=== PATIENT | female | born 1940 | race Caucasian/White ===

== ENCOUNTER 2018-04-17 09:41 | Inpatient (IN) ==
--- NOTE | 2018-04-17 09:59 | Emergency Department Note ---
Disposition Clinical Impression: Dehydration, Renal failure, Weakness Disposition: Admitted As Inpatient Condition: Fair General Adult HPI - General Stated complaint: weakness Time Seen by Provider: 04/17/18 09:43 Source: EMS Limitations: no limitations Nursing Notes Reviewed: Yes Vital Signs Reviewed: Yes - History of Present Illness Pain Scale: 0 - Related Data Home Medications Medication Instructions Recorded Confirmed Aspirin [Adult Low Dose Aspirin EC] 81 mg PO DAILY 08/20/15 10/10/15 Ibandronate Sodium [Boniva] 150 mg PO QMONTH 08/20/15 10/10/15 Temazepam [Restoril] 15 mg PO HS 08/20/15 10/10/15 Lorazepam 0.5 mg PO DAILY 10/10/15 10/10/15 Losartan/HCTZ 50 mg PO DAILY 10/10/15 10/10/15 Previous Rx's Medication Instructions Recorded Clopidogrel [Plavix] 75 mg PO DAILY #30 tablet 08/22/15 Metoprolol XL (24 HR) Succ [Toprol 25 mg PO DAILY #30 tab.er.24h 08/22/15 XL] Nitroglycerin 0.4 mg SL Q5MIN PRN #25 tab.subl 08/22/15 Cefdinir [Omnicef] 300 mg PO BID #14 capsule 04/11/17 predniSONE [PredniSONE] 20 mg PO DAILY 12 Days #24 tablet 04/07/18 Lidocaine Patch [Lidoderm 5% patch] 1 each TP DAILY PRN #7 adh..patch 04/08/18 Allergies Allergy/AdvReac Type Severity Reaction Status Date / Time Erythromycin Base Allergy Rash Verified 04/08/18 12:26 Penicillins Allergy Hives Verified 04/08/18 12:26 Past Medical History - Past Medical History Medical history: Reports: non-contributory, cancer, COPD, myocardial infarction Surgical history: Reports: angioplasty/stent (R common iliac stent), breast surgery (bilateral mastectomy), hysterectomy, orthopedic, other (R foot) Psychiatric history: Reports: no psych history - Social History Smoking Status: Current every day smoker Smokeless Tobacco Status: No Alcohol use: Reports: none Drug use: Reports: none Physical Exam - General Limitations: no limitations General appearance: alert, in no apparent distress Course Vital Signs Temperature 97.9 F 04/17/18 09:49 Pulse Rate 93 04/17/18 09:49 Respiratory Rate 22 04/17/18 09:49 Blood Pressure 101/57 04/17/18 09:49 O2 Sat by Pulse Oximetry 95 04/17/18 09:49 Temperature 97.9 F 04/17/18 09:49 Pulse Rate 90 04/17/18 14:33 Respiratory Rate 20 04/17/18 14:33 Blood Pressure 90/63 04/17/18 14:33 O2 Sat by Pulse Oximetry 95 04/17/18 14:33 Oxygen Delivery Oxygen Delivery Room Air Medical Decision Making - MDM Narrative Medical decision making narrative: Head CT 04/17/18 10:05 IMPRESSION: No acute intracranial abnormality. D/ / Tao Trevizo MD / Tao Trevizo MD Interpreting Provider: Tao Trevizo MD 1230 hrs.: Patient's a very difficult IV stick so they were finally able to get blood off her after several attempts. Waiting on those labs. 1330 hrs.: Waiting on midline placement. She has had labs and her creatinine is worse. She has also got small elevation in her LFTs. And her magnesium and phosphorus. She needs come in for more complete workup by oncology consult. She is in agreement with this plan; we will update her family. - Lab Data Result diagrams: 04/17/18 12:20 04/17/18 12:20 Lab Results 04/17/18 04/17/18 04/17/18 Range/Units 12:20 12:20 12:20 WBC 4.0 L (4.3-11.1) K/mcL RBC 2.44 L (3.82-4.97) M/mcL Hgb 8.1 L (11.5-15.4) g/dL Hct 25.4 L (35.3-44.9) % MCV 104.1 H (83.0-100.0) fL MCH 33.2 (28.0-33.3) pg MCHC 31.9 (31.6-35.5) g/dL RDW 20.2 H (11.5-14.5) % Plt Count 163 (140-400) K/mcL MPV 10.5 (9.4-12.4) fL Immature Gran % 0.5 (0-4) % Seg Neutrophils % 75.5 % Lymphocytes % 16.3 % Monocytes % 7.7 % Eosinophils % 0.0 % Basophils % 0.0 % Neutrophils # 3.0 (1.6-8.9) K/mcL Lymphocytes # 0.7 (0.6-4.6) K/mcL Monocytes # 0.3 (0.0-1.3) K/mcL Eosinophils # 0.0 (0.0-0.6) K/mcL Basophils # 0.0 (0.0-0.2) K/mcL Nucleated RBCs/100 WBC 2.0 H (0) /100 WBC Sodium 132 L (136-145) mEq/L Potassium 4.0 (3.5-5.1) mEq/L Chloride 93 L (98-107) mEq/L Carbon Dioxide 27 (23-29) mEq/L BUN 69 H (8-23) mg/dL Creatinine 5.36 H (0.60-1.20) mg/dL Est GFR ( Amer) 9 L (> 60) Est GFR (Non-Af Amer) 8 L (> 60) BUN/Creatinine Ratio 13 (6-26) Glucose 113 H (70-105) mg/dL Calculated Osmolality 295 (280-300) Lactic Acid 1.3 (0.5-2.2) mmol/L Calcium 9.5 (8.6-10.3) mg/dL Phosphorus 5.6 H (2.7-4.5) mg/dL Magnesium 3.2 H (1.6-2.6) mg/dL Total Bilirubin 0.8 (0.3-1.0) mg/dL AST 76 H (13-39) Units/L ALT 42 (7-52) Units/L Alkaline Phosphatase 101 (34-104) Units/L Creatine Kinase 971 H (30-223) Units/L Troponin I 0.05 H* (< 0.04) ng/mL Serum Total Protein 6.6 (6.4-8.9) g/dL Albumin 3.5 (3.5-5.7) g/dL Globulin 3.1 (2.4-3.5) g/dL Albumin/Globulin Ratio 1.1 (1.1-2.2) TSH 1.103 (0.340-5.600) mcIU/mL Attestation Statement - Attestation Attestation: This documentation is done with the assistance of Dragon dictation. Despite efforts made to ensure accuracy, there may be inaccuracies in search strategist or spelling and typographical errors. I examined this patient and my medical decision-making was reviewed with the Resident Physician. I agree with the documented findings, disposition and treatment plan as described except to the extent set forth below. Patient seen and evaluated by Dr. Olivares and myself, I agree with his valuation management plan, supervise care the patient's stay. Patient was seen by me about a week ago for back pain. After a fall. She was diagnosed with a compression fracture here. She has had pains we went ahead and image the area and found a lytic lesion or pelvis. Went to admit her for workup of that. However she refused and was seen by her family care physician yesterday. They did blood work on her yesterday and found out that she was anemic with worsening renal function. Son states she has also has peripheral edema which is new. She has a history of COPD but is not on oxygen. She denies any chest pain or shortness of breath this time no abdominal pain. We will order labs and compare with other lab work and most likely need admission and workup. She is in agreement with this plan.
[2018-04-17 12:04] LABS: Bilirubin,Urine Moderate (Negative); Blood,Urine Large (Negative); Color,Urine Dark Yellow (Yellow); Glucose,Urine (UA) Normal (Normal); Ketones,Urine Trace mg/dL (Negative); Leukocyte Esterase,Urine Trace (Negative); Nitrite,Urine Negative (Negative); Protein,Urine 100 mg/dL (Neg-Trace); Specific Gravity,Urine 1.027 (1.010-1.025); Urobilinogen,Urine Normal (Normal)
[2018-04-17 12:06] LABS: Squamous Epithelial Cell,Urine Many per lpf (None-Few); WBC,Urine 15-30 per hpf (0-3)
[2018-04-17 12:09] LABS: Clarity,Urine Hazy (Clear)
[2018-04-17 12:24] LABS: Bacteria,Urine Moderate per hpf (None-Few)
[2018-04-17 12:44] LABS: Hematocrit 25.4 % (35.3-44.9); Hemoglobin 8.1 g/dL (11.5-15.4); Immature Granulocytes % 0.5 % (0-4); Lymphocytes # 0.7 K/mcL (0.6-4.6); Lymphocytes % 16.3 %; Mean Corpuscular HGB Conc 31.9 g/dL (31.6-35.5); Mean Corpuscular Hemoglobin 33.2 pg (28.0-33.3); Mean Corpuscular Volume 104.1 fL (83.0-100.0); Mean Platelet Volume 10.5 fL (9.4-12.4); Monocytes # 0.3 K/mcL (0.0-1.3); Monocytes % 7.7 %; Platelet Count 163 K/mcL (140-400); Red Blood Count 2.44 M/mcL (3.82-4.97); Red Cell Distribution Width 20.2 % (11.5-14.5); Segmented Neutrophils % 75.5 %
[2018-04-17 13:09] LABS: Albumin 3.5 g/dL (3.5-5.7); Albumin/Globulin Ratio 1.1 (1.1-2.2); Bilirubin,Total 0.8 mg/dL (0.3-1.0); Calcium 9.5 mg/dL (8.6-10.3); Globulin 3.1 g/dL (2.4-3.5); Magnesium 3.2 mg/dL (1.6-2.6); Phosphorous 5.6 mg/dL (2.7-4.5); Total Protein 6.6 g/dL (6.4-8.9); Troponin I 0.05 ng/mL (< 0.04)
[2018-04-17 13:20] LABS: Thyroid Stimulating Hormone 1.103 mcIU/mL (0.340-5.600)
--- NOTE | 2018-04-17 14:04 | Emergency Department Note ---
Disposition Clinical Impression: Dehydration, Weakness Renal failure Qualifiers: Renal failure chronicity: unspecified chronicity Qualified Code(s): N19 - Unspecified kidney failure Disposition: Admitted As Inpatient Condition: Fair Time of Disposition: 14:32 Weakness HPI - General Chief complaint: ED Weakness Stated complaint: weakness Time Seen by Provider: 04/17/18 09:43 Source: EMS Mode of arrival: EMS Limitations: no limitations Nursing Notes Reviewed: Yes Vital Signs Reviewed: Yes - History of Present Illness HPI Narrative: Patient presents to the ED with the chief complaint of weakness. Patient reports that she saw her primary care physician yesterday and had lab work drawn showed anemia and renal dysfunction. Of note, the patient was seen here a couple weeks ago for low back pain. She had a known compression fracture and states that it was hurting. She subsequently was found to have a lytic lesion of her hip. She refused any further workup and wanted to see her primary care physician. She did so this week and they kari labs and called her to tell her to come in. She is been feeling generally weak and rundown. She is having some mild exertional shortness of breath. She denies any headache or changes in vision. Denies any abdominal pain, nausea, vomiting or diarrhea. Reports that she has been drinking but has had some decreased appetite. Denies any chest pain or shortness of breath at rest. No rash. Pain Scale: 0 - Related Data Home Medications Medication Instructions Recorded Confirmed Aspirin [Adult Low Dose Aspirin EC] 81 mg PO DAILY 08/20/15 10/10/15 Ibandronate Sodium [Boniva] 150 mg PO QMONTH 08/20/15 10/10/15 Temazepam [Restoril] 15 mg PO HS 08/20/15 10/10/15 Lorazepam 0.5 mg PO DAILY 10/10/15 10/10/15 Losartan/HCTZ 50 mg PO DAILY 10/10/15 10/10/15 Previous Rx's Medication Instructions Recorded Clopidogrel [Plavix] 75 mg PO DAILY #30 tablet 08/22/15 Metoprolol XL (24 HR) Succ [Toprol 25 mg PO DAILY #30 tab.er.24h 08/22/15 XL] Nitroglycerin 0.4 mg SL Q5MIN PRN #25 tab.subl 08/22/15 Cefdinir [Omnicef] 300 mg PO BID #14 capsule 04/11/17 predniSONE [PredniSONE] 20 mg PO DAILY 12 Days #24 tablet 04/07/18 Lidocaine Patch [Lidoderm 5% patch] 1 each TP DAILY PRN #7 adh..patch 04/08/18 Allergies Allergy/AdvReac Type Severity Reaction Status Date / Time Erythromycin Base Allergy Rash Verified 04/08/18 12:26 Penicillins Allergy Hives Verified 04/08/18 12:26 Review of Systems: As reviewed in the HPI. All other systems reviewed are negative or normal. Past Medical History - Past Medical History Attestation: Yes The following information was validated with the patient. Source: patient Medical history: Reports: non-contributory, cancer, COPD, myocardial infarction Surgical history: Reports: angioplasty/stent (R common iliac stent), breast surgery (bilateral mastectomy), hysterectomy, orthopedic, other (R foot) Psychiatric history: Reports: no psych history - Social History Smoking Status: Current every day smoker Smokeless Tobacco Status: No Alcohol use: Reports: none Drug use: Reports: none Physical Exam - General Limitations: no limitations General appearance: alert, in no apparent distress - Head Head exam: atraumatic, normocephalic, normal inspection - Eye Eye exam: Present: normal appearance, PERRL, EOMI - ENT ENT exam: normal exam, normal oropharynx, mucous membranes moist - Neck Neck exam: Present: normal inspection, full ROM, trachea midline - Chest Chest inspection: Present: normal inspection, symmetric chest wall rise - Respiratory Respiratory exam: Present: normal lung sounds bilaterally - Cardiovascular Cardiovascular exam: Present: regular rate, normal rhythm, normal heart sounds - Abdominal Exam Abdominal exam: Present: soft, Non-Tender. Absent: tenderness, distention, guarding, rebound, rigidity - Extremities Exam Extremities exam: Present: pedal edema (3+) - Expanded Lower Extremity Exam Hip/Pelvis exam: Present: pelvis stable - Neurological Exam Neurological exam: Present: alert, oriented X3 - Psychiatric Psychiatric exam: Present: depressed, flat affect - Skin Skin exam: Present: warm, dry, intact, normal color Course Course Narrative: Patient presenting with weakness and anemia with renal insufficiency from her primary care physician. Recently had a lytic lesion found on x-ray. Certainly raising concern for underlying malignancy. We will check labs, CT head and likely admit. - Reevaluation(s) Reevaluation #1: CT head is unremarkable. Patient had a chest x-ray yesterday looked okay. She is mildly anemic and does have renal failure. We will admit to the hospitalist service. Vital Signs Temperature 97.9 F 04/17/18 09:49 Pulse Rate 93 04/17/18 09:49 Respiratory Rate 22 04/17/18 09:49 Blood Pressure 101/57 04/17/18 09:49 O2 Sat by Pulse Oximetry 95 04/17/18 09:49 Temperature 97.9 F 04/17/18 09:49 Pulse Rate 93 04/17/18 09:49 Respiratory Rate 22 04/17/18 09:49 Blood Pressure 101/57 04/17/18 09:49 O2 Sat by Pulse Oximetry 95 04/17/18 09:49 Oxygen Delivery Oxygen Delivery Room Air Weakness - Medical Records Medical records reviewed: Yes I reviewed the patient's medical records. - Lab Data Lab results reviewed: Yes I reviewed the patient's lab results. Result diagrams: 04/17/18 12:20 04/17/18 12:20 Lab Results 04/17/18 04/17/18 04/17/18 Range/Units 12:20 12:20 12:20 WBC 4.0 L (4.3-11.1) K/mcL RBC 2.44 L (3.82-4.97) M/mcL Hgb 8.1 L (11.5-15.4) g/dL Hct 25.4 L (35.3-44.9) % MCV 104.1 H (83.0-100.0) fL MCH 33.2 (28.0-33.3) pg MCHC 31.9 (31.6-35.5) g/dL RDW 20.2 H (11.5-14.5) % Plt Count 163 (140-400) K/mcL MPV 10.5 (9.4-12.4) fL Immature Gran % 0.5 (0-4) % Seg Neutrophils % 75.5 % Lymphocytes % 16.3 % Monocytes % 7.7 % Eosinophils % 0.0 % Basophils % 0.0 % Neutrophils # 3.0 (1.6-8.9) K/mcL Lymphocytes # 0.7 (0.6-4.6) K/mcL Monocytes # 0.3 (0.0-1.3) K/mcL Eosinophils # 0.0 (0.0-0.6) K/mcL Basophils # 0.0 (0.0-0.2) K/mcL Nucleated RBCs/100 WBC 2.0 H (0) /100 WBC Sodium 132 L (136-145) mEq/L Potassium 4.0 (3.5-5.1) mEq/L Chloride 93 L (98-107) mEq/L Carbon Dioxide 27 (23-29) mEq/L BUN 69 H (8-23) mg/dL Creatinine 5.36 H (0.60-1.20) mg/dL Est GFR ( Amer) 9 L (> 60) Est GFR (Non-Af Amer) 8 L (> 60) BUN/Creatinine Ratio 13 (6-26) Glucose 113 H (70-105) mg/dL Calculated Osmolality 295 (280-300) Lactic Acid 1.3 (0.5-2.2) mmol/L Calcium 9.5 (8.6-10.3) mg/dL Phosphorus 5.6 H (2.7-4.5) mg/dL Magnesium 3.2 H (1.6-2.6) mg/dL Total Bilirubin 0.8 (0.3-1.0) mg/dL AST 76 H (13-39) Units/L ALT 42 (7-52) Units/L Alkaline Phosphatase 101 (34-104) Units/L Creatine Kinase 971 H (30-223) Units/L Troponin I 0.05 H* (< 0.04) ng/mL Serum Total Protein 6.6 (6.4-8.9) g/dL Albumin 3.5 (3.5-5.7) g/dL Globulin 3.1 (2.4-3.5) g/dL Albumin/Globulin Ratio 1.1 (1.1-2.2) TSH 1.103 (0.340-5.600) mcIU/mL - Radiology Data Radiology results reviewed: Yes I reviewed the patient's radiology results. - EKG Data EKG attestation: Yes I reviewed and interpreted this EKG. EKG results narrative: Sinus rhythm, normal axis, normal rate and intervals, no acute ischemic changes
[2018-04-17] MEDS ORDERED: Nicotine 21 MG PATCH.TD24 TD STA (14:21)
[2018-04-17] MEDS ORDERED: 0.9 % Sodium Chloride 1,000 ML IVC ONE ×2 (14:33→19:17)
[2018-04-17] MEDS ORDERED: 0.9 % Sodium Chloride 500 ML IVC ONE (15:00)
--- NOTE | 2018-04-17 15:26 | Internal Med History&Physical ---
<Henry Alanis - Last Filed: 04/17/18 17:10> Date of Encounter: 04/17/18 Time of Encounter: 15:00 Internal Medicine - H&P: HPI Chief complaint: Abnormal labs Admitted From: Emergency Dept Plans for Post Hospital Care: Home History of present illness: Ms. Kim is a 77 year old female PMHx chronic smoker, hypertension, STEMI, malnutrition presents today after PCP informed her of abnormal labs. She fell several weeks ago and obtained lumbar and pelvic xray. Imaging demonstrated persistence a lytic lesion in the left femoral intertrochanteric region with no correlate on 11/12/2016. Outpatient lab work demonstrated macrocytic anemia, hyponatremia and her primary physician recommended for her to go to the emergency department. Today, son is at bedside. Patient denies having previous history of falls in the past. Her fall three weeks ago was due to loss of balance. She denied dizziness, confusion, blurry vision, headaches, CP, SOB, abdominal pain prior to the fall. Denied head trauma. Denies recent illness, f/v /n/v, diarrhea, constipation, dysuria, hematuria. No family history of cancer. Denies worsening back pain or hip pain. Patient lives by herself and reports that she is able to take care of herself. No further acute complaints. Past Med Surg Social Fam HX - Past Medical History Medical history: non-contributory, cancer, COPD, myocardial infarction Additional medical history: Breast Psychiatric history: no psych history - Past Surgical History Surgical History: angioplasty/stent (R common iliac stent), breast surgery ( bilateral mastectomy), hysterectomy, orthopedic, other (R foot) Additional surgical history: Heart Stent - Social History Smoking Status: Current every day smoker Smokeless Tobacco Status: No Alcohol use: none Drug use: none - Family History Father Family Member Ethnicity: Non- Living Status: Hx Family Cardiac Disorders: No Hx Family Respiratory Disorders: No Hx Family Cancer: No Hx Family GI Disorders: No Hx Family Endocrine Disorder: Yes (grandmother) Hx Family Neuromuscular Disorders: No Hx Family Neurologic Disorders: No Hx Family HEENT Disorders: No Hx Family Autoimmune Disorders: No Internal Medicine - H&P: Meds Ibandronate Sodium [Boniva] 150 mg PO QMONTH 08/20/15 [History] Temazepam [Restoril] 15 mg PO HS 08/20/15 [History] Clopidogrel [Plavix] 75 mg PO DAILY #30 tablet 08/22/15 [Rx] Metoprolol XL (24 HR) Succ [Toprol XL] 25 mg PO DAILY #30 tab.er.24h 08/22/15 [ Rx] Nitroglycerin 0.4 mg SL Q5MIN PRN #25 tab.subl 08/22/15 [Rx] predniSONE [PredniSONE] 20 mg PO DAILY 12 Days #24 tablet 04/07/18 [Rx] Lidocaine Patch [Lidoderm 5% patch] 1 each TP DAILY PRN #7 adh..patch 04/08/18 [ Rx] Aspirin Enteric Coated [Aspirin EC] 81 mg PO DAILY 04/17/18 [History] Furosemide [Lasix] 20 mg PO DAILY 04/17/18 [History] LORazepam [Ativan] 1 - 2 mg PO DAILY PRN 04/17/18 [History] Losartan/Hydrochlorothiazide [Losartan-Hctz 100-25 mg Tab] 0.5 tab PO DAILY [History] Rosuvastatin Calcium [Rosuvastatin Calcium] 40 mg PO DAILY 04/17/18 [History] 3 Allergy/AdvReac Type Severity Reaction Status Date / Time Erythromycin Base Allergy Rash Verified 04/08/18 12:26 Penicillins Allergy Hives Verified 04/08/18 12:26 All Systems PM: A 10-system review of systems was performed and is negative for pertinent findings except as documented above in the HPI. - Constitutional Constitutional: as per HPI - EENT Nose, mouth and throat: as per HPI - Cardiovascular Cardiovascular ROS IM: as per HPI - Respiratory Respiratory: as per HPI - Gastrointestinal Gastrointestinal: as per HPI - Genitourinary Genitourinary: as per HPI - Musculoskeletal Musculoskeletal ROS IM: as per HPI - Constitutional Vitals: Temp Pulse Resp BP Pulse Ox 97.9 F 90 20 90/63 95 04/17/18 09:49 04/17/18 14:33 04/17/18 14:33 04/17/18 14:33 04/17/18 14:33 General appearance: Present: cachectic, A&O X 3 Exam: Patient is ill-appearing and malnourished - Head Head exam: Present: atraumatic, normal inspection - Eye Eye exam: Present: normal appearance - Neck Neck exam general surgery: Present: full ROM - Respiratory Respiratory exam: Present: accessory muscle use, CTAB - Cardiovascular Cardiovascular exam: Present: RRR - Back Exam Back exam: Absent: CVA tenderness (L), CVA tenderness (R), paraspinal tenderness - Neurological Exam Neurological exam: Present: abnormal gait, alert, CN II-XII intact, oriented X3 , no focal deficits - Psychiatric Additional comments: poor eye contact - Skin Skin exam: Present: dry, intact Internal Med - H&P Results - Labs CBC & Chem 7: 04/17/18 12:20 04/17/18 12:20 Labs: Urine 04/17/18 Range/Units Unknown Urine Color Dark Yellow (Yellow) Urine Clarity Hazy A (Clear) Urine pH 5.0 (5.0-8.0) pH Units Ur Specific [place] 1.027 H (1.010-1.025) Urine Protein 100 H (Neg-Trace) mg/dL Urine Glucose (UA) Normal (Normal) mg/dL - Assessment and plan (1) Lytic bone lesion of femur Current Visit: Yes Status: Acute Assessment and plan: Patient with possible lytic lesion on lumbar XR s/p mechanical fall. Calcium level WNL. presents with acute renal failure without history of kidney disease. She also presents with new onset macrocytic anemia and worsening weakness + weight loss. We will obtain skeletal survey, UPEP, SPEP to rule out multiple myeloma. She appears dry and dehydrated. She is also hypotensive. Will start maintenance fluids Nephrology consulted. Recommendations appreciated. Will consider hemonc pending work up. Patient and family was informed and agreeable. (2) Hypertension Current Visit: No Status: Chronic Assessment and plan: Patient is hypotensive. We will hold her antihypertensives for now. Qualifiers: Hypertension type: essential hypertension Qualified Code(s): I10 - Essential (primary) hypertension (3) Tobacco use Current Visit: No Status: Chronic (4) Dehydration Current Visit: Yes Status: Acute Assessment and plan: IVF (5) Renal failure Current Visit: Yes Status: Acute Assessment and plan: No previous history of renal disease. MM work up in the setting of new onset anemia, renal failure, chronic back pain. Qualifiers: Renal failure chronicity: unspecified chronicity Qualified Code(s): N19 - Unspecified kidney failure (6) Malnourished Current Visit: Yes Status: Acute Assessment and plan: nutrition consulted Qualifiers: Qualified Code(s): E46 - Unspecified protein-calorie malnutrition - Time Spent With Patient Total time spent is greater than 50% in coordination of care (as documented) at patient's floor/unit and/or counseling patient: Greater than 35 minutes <Fredrick Arrieta - Last Filed: 04/17/18 17:29> Date of Encounter: 04/17/18 Internal Medicine - H&P: HPI History of present illness: Ms. Kim is a 77 year old female All Systems PM: A 10-system review of systems was performed and is negative for pertinent findings except as documented above in the HPI. - Constitutional Vitals: Temp Pulse Resp BP Pulse Ox 98.3 F 95 17 81/52 95 04/17/18 15:56 04/17/18 15:56 04/17/18 15:56 04/17/18 15:56 04/17/18 14:33 Internal Med - H&P Results - Labs CBC & Chem 7: 04/17/18 12:20 04/17/18 12:20 Labs: Urine 04/17/18 Range/Units Unknown Urine Color Dark Yellow (Yellow) Urine Clarity Hazy A (Clear) Urine pH 5.0 (5.0-8.0) pH Units Ur Specific [place] 1.027 H (1.010-1.025) Urine Protein 100 H (Neg-Trace) mg/dL Urine Glucose (UA) Normal (Normal) mg/dL - Time Spent With Patient Total time spent is greater than 50% in coordination of care (as documented) at patient's floor/unit and/or counseling patient: - Attending Attestation I performed an independent interview and exam of this patient. I am in agreement with the findings, assessment, and plan of Dr. Alanis, family practice resident.. I was present during the entire interaction and participated in the interview and exam along with Dr. Alanis. This is a 77-year-old female with history of chronic kidney disease stage III but creatinine of 1.0 year ago. She also has a history COPD (not on home O2), ongoing tobacco abuse, bilat breast cancer status post bilateral mastectomy. She also had chemotherapy and was presumed cured. Patient presents with weakness, multiple falls. Most recently was diagnosed with a lumbar compression fracture, incidentally also noted to have a left femoral lytic lesion of unclear etiology. On arrival patient is hemodynamically stable. She is in acute renal failure with a creatinine in the 5 range. She denies using any Motrin or NSAIDs. Patient does relate decreased oral intake. No fevers or chills. Patient has had a decreased appetite and has lost considerable amount of weight, she states 5 pounds over the last month but family states much more. Additional findings on chemistry shows her to be anemic. Given the finding of renal failure, as well as anemia and a lytic lesion, the concern for multiple myeloma is high in the differential. Thus we will perform a skeletal survey and do SPEP and UPEP studies to start. We will also consult nephrology. Family is present at the bedside and we discussed this in detail. Exam: Patient has conversational dyspnea. She is mildly cachectic. She is awake alert and oriented 3. Skin is warm and dry with scattered ecchymoses, mild pallor Neck is supple Lungs show faint crackles at the bases bilaterally Heart regular rate and rhythm without murmur Abdomen is soft nontender with normoactive bowel sounds Extremities show no significant edema Neurological exam is nonfocal although she does have generalized weakness.
[2018-04-17] MEDS: *HR* Heparin 5,000 UNIT/ML VIAL SQ SCH (20:59)
[2018-04-17] MEDS: 0.9 % Sodium Chloride 1,000 ML IVC SCH ×2 (21:11→21:12)
[2018-04-18] MEDS: 0.9 % Sodium Chloride 1,000 ML IVC SCH ×3 (03:17→18:46)
[2018-04-18 05:05] LABS: Protein/Creatinine Ratio,Urine 1.08 mg/mg (0.00-0.20)
[2018-04-18] MEDS: *HR* Heparin 5,000 UNIT/ML VIAL SQ SCH ×2 (05:18→17:12)
[2018-04-18] MEDS ORDERED: Ringers Solution, Lactated 500 ML IVC ONE (05:34)
[2018-04-18] MEDS ORDERED: Ringers Solution, Lactated 1,000 ML ONE (05:42)
--- NOTE | 2018-04-18 07:40 | Internal Med Progress Note ---
<Fredrick Arrieta - Last Filed: 04/18/18 10:51> Hospitalist Progress Note - Encounter Date of Encounter: 04/18/18 - Exam Vitals: Temp Pulse Resp BP Pulse Ox 98.7 F 87 18 93/59 92 04/18/18 07:49 04/18/18 07:49 04/18/18 07:49 04/18/18 07:49 04/18/18 07:49 - Time Spent with Patient Total time spent is greater than 50% in coordination of care (as documented) at patient's floor/unit and/or counseling patient: Internal Medicine: Result - Labs CBC & Chem 7: 04/18/18 07:26 04/18/18 07:53 Labs: Short CBC 04/18/18 Range/Units 07:26 WBC 3.3 L (4.3-11.1) K/mcL Hgb 6.4 L D (11.5-15.4) g/dL Hct 20.3 L (35.3-44.9) % Plt Count 118 L (140-400) K/mcL Neutrophils # 2.2 (1.6-8.9) K/mcL BMP 04/18/18 04/18/18 05:14 07:53 Sodium 135 L 135 L Potassium 3.5 3.4 L Chloride 103 104 Carbon Dioxide 25 26 BUN 66 H 63 H Creatinine 4.62 H 4.36 H Glucose 92 94 Calcium 8.1 L 8.1 L Urine 04/17/18 Range/Units Unknown Urine Color Dark Yellow (Yellow) Urine Clarity Hazy A (Clear) Urine pH 5.0 (5.0-8.0) pH Units Ur Specific Antelope 1.027 H (1.010-1.025) Urine Protein 100 H (Neg-Trace) mg/dL Urine Glucose (UA) Normal (Normal) mg/dL - Impressions Impressions Bone Osseous Survey 04/17/18 16:20 IMPRESSION: 1. Small lucent lesion in the proximal left femur. Metastatic disease can not be excluded in a patient with a known history of breast cancer. 2. Interval loss of height of L2 compression fracture. Follow-up is recommended for acute compression fracture. Possibility of a pathologic fracture can not be excluded. D/ / Cristo Hassan MD / Cristo Hassan MD Interpreting Provider: Cristo Hassan MD Consult Discharge Plan - Plan Referrals: Coral Grossman, TEST DESKMAN [Primary Care Provider] - - Attending Attestation I performed an independent interview and exam of this patient. I agree with the findings, assessment, and plan of Dr. Forbes, internal medicine resident. Patient's renal function has improved overnight and fortunately her hemoglobin has dropped from 8.1 on admission to 6.4. A transfusion has been ordered. No obvious bleeding identified. Her renal failure is likely multifactorial due to dehydration as well as multiple medications which she was taking at home which are nephrotoxic including Lasix, as well as losartan and hydrochlorothiazide. She is also on a statin and her CK is elevated concerning for mild rhabdomyolysis. Pharyngeal input is appreciated. Patient's son is present at the bedside and we discussed her case. She will be receiving a transfusion and will monitor closely for any signs of bleeding. Could be an most likely also has anemia due to chronic renal failure. Cardiovascular survey did not show any additional lytic lesions. SPEP and prep are pending. Exam: Gen: Frail, malnourished, conversational dyspnea, pursed lip breathing at times Skin shows diminished turgor Lungs showed diminished breath sounds bilaterally, no wheeze or rhonchi Regular rate and rhythm Abdomen soft nontender Extremities show no edema Neurological nonfocal although patient is very weak, hands are tremulous at times. Echocardiogram is ordered. <Asim Forbes - Last Filed: 04/18/18 12:26> Hospitalist Progress Note - Encounter Date of Encounter: 04/18/18 Time of Encounter: 07:40 - Subjective Interval History: Patient seen and examined at bedside this morning. She reports that she is feeling mildly short of breath. She admits to a mild cough and wheezing. Also reports diminished appetite, but states that she ate her full meal. Admits to weakness and fatigue. She denies fever, chills, nausea, vomiting, or pain. No further complaints at this time. - Exam Vitals: Temp Pulse Resp BP Pulse Ox 98.9 F 98 15 93/52 99 04/18/18 04:50 04/18/18 04:50 04/18/18 04:50 04/18/18 06:44 04/18/18 04:50 Exam: General: Frail, malnourished Head: Atraumatic, normocephalic, sunken-appearing eyes Heart: RRR, no murmurs rubs or gallops Lungs: Diminished breath sounds bilaterally, expiratory wheezes, prolonged expiratory phase Abdomen: Soft, nontender Neuro: No focal deficits Extremities: Pulses 2/4 throughout. No edema Skin: Diminished skin turgor, pale - Assessment and Plan (1) Lytic bone lesion of femur Current Visit: Yes Status: Acute Assessment and Plan: Lytic lesion located in the L femoral intertrochanteric with no correlate as diagnosed on imaging on 11/12/16 - Patient had a fall several weeks ago; subsequently obtained lumbar/pelvic x- ray - Laboratory analysis demonstrated macrocytic anemia, hyponatremia - Patient also presented with lethargy, weight loss Bone osseous survery on 04/17 demonstrated: - Small lucent lesion in proximal L femur - Interval loss of height of L2 compression fracture Plan: - Will obtain UPEP, SPEP to r/o multiple myeloma (2) Renal failure Current Visit: Yes Status: Acute Assessment and Plan: New onset renal failure; laboratory analysis demonstrated an elevated creatinine 5.36 - Patient has no known history of renal disease; unknown etiology at this time - Patient denies the use of NSAIDs - She does admit to decreased PO intake - UA demonstrated urine protein 100, trace urine ketones, large amount of blood , protein/creatinine ratio - 1.08, total protein 97 - MM work up in the setting of new onset anemia, renal failure, chronic back pain Plan: - Retroperitoneal U/S pending - Nephrology consulted; would appreciate recommendations (3) Anemia Current Visit: Yes Status: Acute Assessment and Plan: Patient's Hb has dropped to 6.8 - Patient is chronically anemic - Unknown etiology at this time; possibly dilutional - No evidence of active bleed - One unit of pRBCs ordered (4) Hypotension Current Visit: Yes Status: Acute Assessment and Plan: Last blood pressure was 93/59 - We will administer fluids as necessary - Antihypertensive medications are being held for the time being (5) Malnourished Current Visit: Yes Status: Acute Assessment and Plan: - Patient appears cachexic and weak - Admits to unintentional weight loss of ~5 lbs in the last few months - Nutrition has been consulted (6) Dehydration Current Visit: Yes Status: Acute Assessment and Plan: - IVF - Time Spent with Patient Total time spent is greater than 50% in coordination of care (as documented) at patient's floor/unit and/or counseling patient: less than 15 minutes Plan of Care Discussed with: patient Internal Medicine: Result - Labs CBC & Chem 7: 04/18/18 07:26 04/18/18 07:53 Labs: Urine 04/17/18 Range/Units Unknown Urine Color Dark Yellow (Yellow) Urine Clarity Hazy A (Clear) Urine pH 5.0 (5.0-8.0) pH Units Ur Specific Antelope 1.027 H (1.010-1.025) Urine Protein 100 H (Neg-Trace) mg/dL Urine Glucose (UA) Normal (Normal) mg/dL - Impressions Impressions Bone Osseous Survey 04/17/18 16:20 IMPRESSION: 1. Small lucent lesion in the proximal left femur. Metastatic disease can not be excluded in a patient with a known history of breast cancer. 2. Interval loss of height of L2 compression fracture. Follow-up is recommended for acute compression fracture. Possibility of a pathologic fracture can not be excluded. D/ / Cristo Hassan MD / Cristo Hassan MD Interpreting Provider: Cristo Hassan MD <Asim Forbes - Last Filed: 04/18/18 12:26> (2) Renal failure Qualifiers: Renal failure chronicity: unspecified chronicity Qualified Code(s): N19 - Unspecified kidney failure
[2018-04-18 07:49] LABS: Calcium 8.1 mg/dL (8.6-10.3); Potassium 3.5 mEq/L (3.5-5.1)
[2018-04-18 07:56] LABS: Eosinophils % 0.3 %; Hematocrit 20.3 % (35.3-44.9); Hemoglobin 6.4 g/dL (11.5-15.4); Immature Granulocytes % 0.6 % (0-4); Lymphocytes # 0.8 K/mcL (0.6-4.6); Lymphocytes % 24.2 %; Mean Corpuscular HGB Conc 31.5 g/dL (31.6-35.5); Mean Corpuscular Hemoglobin 33.2 pg (28.0-33.3); Mean Corpuscular Volume 105.2 fL (83.0-100.0); Mean Platelet Volume 9.9 fL (9.4-12.4); Monocytes # 0.3 K/mcL (0.0-1.3); Monocytes % 9.2 %; Neutrophils # 2.2 K/mcL (1.6-8.9); Nucleated Red Blood Cells 1.8 /100 WBC (0); Platelet Count 118 K/mcL (140-400); Red Blood Count 1.93 M/mcL (3.82-4.97); Red Cell Distribution Width 20.2 % (11.5-14.5); Segmented Neutrophils % 65.7 %
[2018-04-18] MEDS: Nicotine 21 MG PATCH.TD24 TD SCH (08:14)
[2018-04-18] MEDS: Aspirin Enteric Coated 81 MG Tablet PO SCH (08:14)
[2018-04-18 08:45] LABS: Calcium 8.1 mg/dL (8.6-10.3); Potassium 3.4 mEq/L (3.5-5.1)
--- NOTE | 2018-04-18 09:48 | Nephrology Consult Note ---
Date of Encounter: 04/18/18 Time of Encounter: 09:40 Assessment and Plan (1) LAUREN (acute kidney injury) Current Visit: Yes Status: Acute Elevated SCr in the setting of decreased po intake, possible lytic lesion r/o MM and mildly elevated cpk Agree with volume repletion with IVF, will also need transfusion pRBCs today SPEP and UPEP pending UA consistent with volume depletion. Urine shows subnephrotic proteinuria Will check urine sodium and eosinophils as well Will check uric acid and LDH levels Avoid nephtoxins if possible Agree with US of kidney already ordered (2) Lytic bone lesion of femur Current Visit: Yes Status: Acute workup pending (3) Anemia Current Visit: Yes Status: Acute Etiology unclear, needs workup with stool guaiac, iron studies, vit B12 and folate Needs transfusion for hgb down to 6.4 Qualifiers: Anemia type: unspecified type Qualified Code(s): D64.9 - Anemia, unspecified (4) Hyponatremia Current Visit: Yes Status: Acute Sodium noted at 132 on admission improving to 135 with IVF. likely casued by HCTZ and decreased po intake History of Present Illness - Reason for Consult Consult date: 04/18/18 Acute Kidney Injury, Chronic Kidney Disease Requesting physician: Henry Alanis - History of Present Illness 77 y o female with PMH of HTN, tobaco use and CAD s/p LA admitted for abn labs. Renal consulted for SCr of 5.36, GFR 8 on admission. Baseline labs dates back to 2016 with GFR 40s-60s then. Also noted was recent failure to thrive with weight loss and possible bony lesion noted on imaging after a recent fall with L2 compression fractre. Pt is also significantly anemia with hgb at 8.1 on admission dropping to 6.4 with fluids. Also notable; pt was taking losartanHCT, boniva and lasix at home. Pt seen and examined with family at bedside Past Med Surg Social Fam HX - Past Medical History Medical history: non-contributory, cancer, COPD, myocardial infarction Additional medical history: Breast Psychiatric history: no psych history - Past Surgical History Surgical History: angioplasty/stent (R common iliac stent), breast surgery ( bilateral mastectomy), hysterectomy, orthopedic, other (R foot) Additional surgical history: Heart Stent - Social History Smoking Status: Current every day smoker Smokeless Tobacco Status: No Alcohol use: none Drug use: none - Family History Father Family Member Ethnicity: Non- Living Status: Hx Family Cardiac Disorders: No Hx Family Respiratory Disorders: No Hx Family Cancer: No Hx Family GI Disorders: No Hx Family Endocrine Disorder: Yes (grandmother) Hx Family Neuromuscular Disorders: No Hx Family Neurologic Disorders: No Hx Family HEENT Disorders: No Hx Family Autoimmune Disorders: No Medications and Allergies Ibandronate Sodium [Boniva] 150 mg PO QMONTH 08/20/15 [History] Temazepam [Restoril] 15 mg PO HS 08/20/15 [History] Clopidogrel [Plavix] 75 mg PO DAILY #30 tablet 08/22/15 [Rx] Metoprolol XL (24 HR) Succ [Toprol XL] 25 mg PO DAILY #30 tab.er.24h 08/22/15 [ Rx] Nitroglycerin 0.4 mg SL Q5MIN PRN #25 tab.subl 08/22/15 [Rx] predniSONE [PredniSONE] 20 mg PO DAILY 12 Days #24 tablet 04/07/18 [Rx] Lidocaine Patch [Lidoderm 5% patch] 1 each TP DAILY PRN #7 adh..patch 04/08/18 [ Rx] Aspirin Enteric Coated [Aspirin EC] 81 mg PO DAILY 04/17/18 [History] Furosemide [Lasix] 20 mg PO DAILY 04/17/18 [History] LORazepam [Ativan] 1 - 2 mg PO DAILY PRN 04/17/18 [History] Losartan/Hydrochlorothiazide [Losartan-Hctz 100-25 mg Tab] 0.5 tab PO DAILY [History] Rosuvastatin Calcium [Rosuvastatin Calcium] 40 mg PO DAILY 04/17/18 [History] 3 Allergy/AdvReac Type Severity Reaction Status Date / Time Erythromycin Base Allergy Rash Verified 04/08/18 12:26 Penicillins Allergy Hives Verified 04/08/18 12:26 Review of Systems All Systems: reviewed and no additional remarkable complaints except as stated All Systems review (narrative): All other systems (10) are negative Constitutional: anorexia, fatigue Cardiovascular: leg edema Exam - Vital Signs Vital signs: Initial Vital Signs Temp Pulse Resp BP Pulse Ox 97.9 F 93 22 101/57 95 04/17/18 09:49 04/17/18 09:49 04/17/18 09:49 04/17/18 09:49 04/17/18 09:49 Vital Signs - Last 8 Hours Temp Pulse Resp BP Pulse Ox 04/18/18 07:49 98.7 F 87 18 93/59 92 04/18/18 06:44 93/52 04/18/18 04:50 98.9 F 98 15 88/48 99 Intake and Output 04/17/18 04/18/18 04/18/18 23:59 07:59 15:59 Intake Total 1240 / 1240 1000 / 1000 Output Total 400 / 400 Balance 1240 / 1240 600 / 600 Intake: IV Fluids 1000 / 1000 1000 / 1000 0.9 % Sodium Chloride 1,000 ML 1000 / 1000 1000 / 1000 @ 100 mls/hr IVC .Q10H [facility] Rx#: [id number] Oral 240 / 240 Output: Urine 400 / 400 Other: Meal Dinner Percent of Meal Consumed 70% # Voids 1 - General Appearance General appearance: chronically ill, frail EENT: ATNC, mucous membranes dry Neck: no JVD, supple Respiratory: clear (ant bilat) Cardiology: edema (ankle bilat), normal S1, normal S2 Gastrointestinal: no tenderness, no guarding Integumentary: warm and dry Neurologic: no focal deficit Musculoskeletal: no deformities Psychiatric: mood/affect appropriate, cooperative Results - Lab Results 04/19/18 04:51 04/19/18 04:41 Most recent lab results Calcium 8.1 mg/dL (8.6-10.3) L 04/18/18 07:53 Phosphorus 5.6 mg/dL (2.7-4.5) H 04/17/18 12:20 Magnesium 3.2 mg/dL (1.6-2.6) H 04/17/18 12:20 Urine Creatinine 90 mg/dL 04/18/18 04:31 Urine Total Protein 97 mg/dL (1-14) H 04/18/18 04:31 Consult Discharge Plan - Plan Referrals: Coral Grossman, GUEST SERVICE HOST [Primary Care Provider] -
[2018-04-18 10:15] LABS: Uric Acid 8.4 mg/dL (2.3-7.6)
[2018-04-18] MEDS: Ipratropium/Albuterol Neb 3 ML IH SCH ×4 (13:22→23:22)
[2018-04-18 14:25] LABS: Sodium, Urine 88.6 mEq/L
[2018-04-19] MEDS: Ipratropium/Albuterol Neb 3 ML IH SCH ×6 (04:30→23:43)
[2018-04-19] MEDS: 0.9 % Sodium Chloride 1,000 ML IVC SCH ×2 (04:56→15:42)
[2018-04-19 05:53] LABS: Hematocrit 22.4 % (35.3-44.9); Hemoglobin 7.3 g/dL (11.5-15.4); Immature Granulocytes % 0.7 % (0-4); Lymphocytes % 23.1 %; Mean Corpuscular HGB Conc 32.6 g/dL (31.6-35.5); Mean Corpuscular Hemoglobin 32.4 pg (28.0-33.3); Mean Corpuscular Volume 99.6 fL (83.0-100.0); Mean Platelet Volume 10.8 fL (9.4-12.4); Platelet Count 101 K/mcL (140-400); Red Blood Count 2.25 M/mcL (3.82-4.97); Red Cell Distribution Width 22.8 % (11.5-14.5); Segmented Neutrophils % 66.8 %
[2018-04-19 05:54] LABS: Eosinophils % 0.7 %; Lymphocytes # 0.7 K/mcL (0.6-4.6); Monocytes # 0.3 K/mcL (0.0-1.3); Monocytes % 8.7 %; Neutrophils # 1.9 K/mcL (1.6-8.9); Nucleated Red Blood Cells 2.1 /100 WBC (0)
[2018-04-19 06:14] LABS: Calcium 8.1 mg/dL (8.6-10.3); Potassium 3.1 mEq/L (3.5-5.1)
[2018-04-19] MEDS: *HR* Heparin 5,000 UNIT/ML VIAL SQ SCH ×2 (06:23→16:53)
--- NOTE | 2018-04-19 07:46 | Internal Med Progress Note ---
<Asim Forbes - Last Filed: 04/19/18 11:57> Hospitalist Progress Note - Encounter Date of Encounter: 04/19/18 Time of Encounter: 09:30 - Subjective Interval History: Patient seen and examined at bedside this morning. States that she feels tired today. She ate part of her breakfast, but still has a diminished appetite. Admits to weakness and fatigue. She denies fever, chills, nausea, vomiting, or pain. No further complaints at this time. - Exam Vitals: Temp Pulse Resp BP Pulse Ox 99.1 F 91 17 92/58 98 04/19/18 04:05 04/19/18 04:05 04/19/18 04:05 04/19/18 04:05 04/19/18 04:05 Exam: General: Frail, malnourished Head: Atraumatic, normocephalic, sunken-appearing eyes Heart: RRR, no murmurs rubs or gallops Lungs: Diminished breath sounds bilaterally, expiratory wheezes, prolonged expiratory phase Abdomen: Soft, nontender Neuro: No focal deficits Extremities: Pulses 2/4 throughout. No edema Skin: Diminished skin turgor, pale - Assessment and Plan (1) Lytic bone lesion of femur Current Visit: Yes Status: Acute Assessment and Plan: Lytic lesion located in the L femoral intertrochanteric with no correlate as diagnosed on imaging on 11/12/16 - Patient had a fall several weeks ago; subsequently obtained lumbar/pelvic x- ray - Laboratory analysis demonstrated macrocytic anemia, hyponatremia - Patient also presented with lethargy, weight loss Bone osseous survery on 04/17 demonstrated: - Small lucent lesion in proximal L femur - Interval loss of height of L2 compression fracture Plan: - Will obtain UPEP, SPEP to r/o multiple myeloma (2) Renal failure Current Visit: Yes Status: Acute Assessment and Plan: New onset renal failure; laboratory analysis demonstrated an elevated creatinine 5.36 - Patient has no known history of renal disease; unknown etiology at this time - Patient denies the use of NSAIDs - She does admit to decreased PO intake - UA demonstrated urine protein 100, trace urine ketones, large amount of blood , protein/creatinine ratio - 1.08, total protein 97 - MM work up in the setting of new onset anemia, renal failure, chronic back pain Renal U/S on 9/29 demonstrated: - Upper limits of normal echogenicity of the renal cortex and relatively hypoechoic renal medullary pyramids, potentially related to underlying cortical disease - Questionable nonobstructing calculi bilaterally Plan: - Check urine sodium and eosinophils as well - Check uric acid and LDH levels (3) Anemia Current Visit: Yes Status: Acute Assessment and Plan: Patient's Hb had dropped to 6.8; one unit of PRBC was ordered; Hb today is 7.3 - Patient is chronically anemic - Unknown etiology at this time; possibly dilutional - No evidence of active bleed (4) Hypotension Current Visit: Yes Status: Acute Assessment and Plan: Last blood pressure was 92/58 - We will administer fluids as necessary - Antihypertensive medications are being held for the time being (5) Malnourished Current Visit: Yes Status: Acute Assessment and Plan: - Patient appears cachexic and weak - Admits to unintentional weight loss of ~5 lbs in the last few months - Nutrition has been consulted (6) Dehydration Current Visit: Yes Status: Acute Assessment and Plan: - IVF - Time Spent with Patient Total time spent is greater than 50% in coordination of care (as documented) at patient's floor/unit and/or counseling patient: less than 15 minutes Internal Medicine: Result - Labs CBC & Chem 7: 04/19/18 04:51 04/19/18 04:41 Labs: Short CBC 04/18/18 04/19/18 Range/Units 07:26 04:51 WBC 3.3 L 2.9 L (4.3-11.1) K/mcL Hgb 6.4 L D 7.3 L (11.5-15.4) g/dL Hct 20.3 L 22.4 L (35.3-44.9) % Plt Count 118 L 101 L (140-400) K/mcL Neutrophils # 2.2 1.9 (1.6-8.9) K/mcL BMP 04/18/18 04/18/18 04/19/18 05:14 07:53 04:41 Sodium 135 L 135 L 141 Potassium 3.5 3.4 L 3.1 L Chloride 103 104 109 H Carbon Dioxide 25 26 27 BUN 66 H 63 H 54 H Creatinine 4.62 H 4.36 H 3.16 H Glucose 92 94 92 Calcium 8.1 L 8.1 L 8.1 L - Impressions Impressions Retroperitoneum Ultrasound 04/18/18 14:00 IMPRESSION: 1. Upper limits of normal echogenicity of the renal cortex and relatively hypoechoic renal medullary pyramids, potentially related to underlying cortical disease. 2. Questionable nonobstructing calculi bilaterally. 3. Normal sonographic appearance of the urinary bladder. 4. Trace to small ascites. D/ / Donald Monsalve MD / Donald Monsalve MD Interpreting Provider: Donald Monsalve MD Consult Discharge Plan - Plan Referrals: Coral Grossman TRIMMING INSPECTOR [Primary Care Provider] - <Fredrick Arrieta - Last Filed: 04/19/18 13:33> Hospitalist Progress Note - Encounter Date of Encounter: 04/19/18 - Exam Vitals: Temp Pulse Resp BP Pulse Ox 97.8 F 89 16 97/51 99 04/19/18 11:07 04/19/18 11:07 04/19/18 11:07 04/19/18 11:07 04/19/18 11:07 - Time Spent with Patient Total time spent is greater than 50% in coordination of care (as documented) at patient's floor/unit and/or counseling patient: Internal Medicine: Result - Labs CBC & Chem 7: 04/19/18 04:51 04/19/18 04:41 Labs: Short CBC 04/19/18 Range/Units 04:51 WBC 2.9 L (4.3-11.1) K/mcL Hgb 7.3 L (11.5-15.4) g/dL Hct 22.4 L (35.3-44.9) % Plt Count 101 L (140-400) K/mcL Neutrophils # 1.9 (1.6-8.9) K/mcL BMP 04/19/18 04:41 Sodium 141 Potassium 3.1 L Chloride 109 H Carbon Dioxide 27 BUN 54 H Creatinine 3.16 H Glucose 92 Calcium 8.1 L - Impressions Impressions Retroperitoneum Ultrasound 04/18/18 14:00 IMPRESSION: 1. Upper limits of normal echogenicity of the renal cortex and relatively hypoechoic renal medullary pyramids, potentially related to underlying cortical disease. 2. Questionable nonobstructing calculi bilaterally. 3. Normal sonographic appearance of the urinary bladder. 4. Trace to small ascites. D/ / Donald Monsalve MD / Donald Monsalve MD Interpreting Provider: Donald Monsalve MD - Attending Attestation I performed an independent interview and exam of this patient. I agree with the findings, assessment, and plan of Dr. Forbes, internal medicine resident. Patient's renal function continues to improve. Transfused yest, Hb now stable.. No obvious bleeding identified. Her renal failure is likely multifactorial due to dehydration as well as multiple medications which she was taking at home which are nephrotoxic including Lasix, as well as losartan and hydrochlorothiazide. She is also on a statin and her CK is elevated concerning for mild rhabdomyolysis. Pharyngeal input is appreciated. Patient's son is present at the bedside and we discussed her case. She will be receiving a transfusion and will monitor closely for any signs of bleeding. Could be an most likely also has anemia due to chronic renal failure. Skeletal survey did not show any additional lytic lesions. SPEP and prep are pending. Exam: Gen: Frail, malnourished, conversational dyspnea, pursed lip breathing at times - appearance much improved today Skin warm and dry Lungs showed diminished breath sounds bilaterally, no wheeze or rhonchi Regular rate and rhythm Abdomen soft nontender Extremities show no edema Neurological nonfocal although patient is very weak, hands are tremulous at times. Echocardiogram is ordered. I discussed the case in detail with family Nephrology input appreciated <Asim Forbes - Last Filed: 04/19/18 11:57> (2) Renal failure Qualifiers: Renal failure chronicity: unspecified chronicity Qualified Code(s): N19 - Unspecified kidney failure
[2018-04-19] MEDS: Aspirin Enteric Coated 81 MG Tablet PO SCH (07:53)
[2018-04-19] MEDS: Nicotine 21 MG PATCH.TD24 TD SCH (07:54)
--- NOTE | 2018-04-19 15:48 | Nephrology Progress Note ---
Date of Encounter: 04/19/18 Time of Encounter: 12:00 - Assessment and Plan (1) LAUREN (acute kidney injury) Current Visit: Yes Status: Acute Scr continues improve at 3.16, GFR 14, continue IVF UOP good at 1450cc in the past 24hrs Urine shows proteinuria but not albumin, likely globins, will await SPEP and UPEP results Continue to avoid nephrotoxins if possible (2) Lytic bone lesion of femur Current Visit: Yes Status: Acute (3) Anemia Current Visit: Yes Status: Acute Etiology unclear, needs workup with stool guaiac, iron studies, vit B12 and folate Hgb noted improved at 7.3 after 1 unit pRBCs given Qualifiers: Anemia type: unspecified type Qualified Code(s): D64.9 - Anemia, unspecified (4) Hyponatremia Current Visit: Yes Status: Acute Subjective Interval history: Pt seen and examined with family at bedside feeling better. Objective - Vital Signs Vital signs: Vital Signs Temp Pulse Resp BP Pulse Ox 04/19/18 11:07 97.8 F 89 16 97/51 99 04/19/18 08:15 98.0 F 96 18 136/71 99 04/19/18 07:31 18 99 04/19/18 04:05 99.1 F 91 17 92/58 98 04/18/18 23:27 98.8 F 114 18 91/57 92 04/18/18 23:22 18 99 04/18/18 20:05 16 98 04/18/18 19:31 98.3 F 98 18 97/58 99 04/18/18 18:44 98.3 F 74 20 99/64 04/18/18 16:52 98.7 F 85 17 97/53 100 04/18/18 16:20 98.3 F 94 18 92/58 100 04/18/18 16:05 98.6 F 95 16 92/55 99 Intake and Output 04/18/18 04/19/18 04/19/18 23:59 07:59 15:59 Intake Total 1125 / 1125 1000 / 1000 2750 / 2750 Output Total 600 / 600 650 / 650 Balance 525 / 525 350 / 350 2750 / 2750 Intake: IV Fluids 800 / 800 1000 / 1000 2500 / 2500 0.9 % Sodium Chloride 1,000 ML 800 / 800 1000 / 1000 1000 / 1000 @ 100 mls/hr IVC .Q10H [facility] Rx#: [id number] Oral 250 / 250 Blood Product 325 / 325 Rbcs Leuko Poor As-3 Ph Unit 325 / 325 [id number] Output: Urine 600 / 600 650 / 650 Other: Meal Lunch Percent of Meal Consumed 0% Stool Size Small Stool Consistency loose Stool Color Brown # Bowel Movements 1 - Lab 04/19/18 04:51 04/19/18 04:41 Most recent lab results Calcium 8.1 mg/dL (8.6-10.3) L 04/19/18 04:41 Phosphorus 5.6 mg/dL (2.7-4.5) H 04/17/18 12:20 Magnesium 3.2 mg/dL (1.6-2.6) H 04/17/18 12:20 Urine Creatinine 97 mg/dL 04/18/18 13:57 Urine Sodium 88.6 mEq/L 04/18/18 13:57 Urine Total Protein 97 mg/dL (1-14) H 04/18/18 04:31 Consult Discharge Plan - Plan Referrals: Coral Grossman, NEWCOMER HOSTESS [Primary Care Provider] -
[2018-04-20] MEDS: 0.9 % Sodium Chloride 1,000 ML IVC SCH (02:05)
[2018-04-20] MEDS: Ipratropium/Albuterol Neb 3 ML IH SCH ×5 (03:57→21:57)
[2018-04-20 05:26] LABS: Basophils % 0.3 %; Eosinophils % 0.5 %; Hemoglobin 7.7 g/dL (11.5-15.4); Immature Granulocytes % 0.8 % (0-4); Lymphocytes # 0.8 K/mcL (0.6-4.6); Lymphocytes % 21.3 %; Mean Corpuscular HGB Conc 30.8 g/dL (31.6-35.5); Mean Corpuscular Hemoglobin 31.8 pg (28.0-33.3); Mean Corpuscular Volume 103.3 fL (83.0-100.0); Mean Platelet Volume 10.3 fL (9.4-12.4); Monocytes # 0.3 K/mcL (0.0-1.3); Monocytes % 8.6 %; Red Blood Count 2.42 M/mcL (3.82-4.97); Red Cell Distribution Width 22.6 % (11.5-14.5); Segmented Neutrophils % 68.5 %
[2018-04-20 05:31] LABS: Neutrophils # 2.7 K/mcL (1.6-8.9); Platelet Count 96 K/mcL (140-400)
[2018-04-20 05:41] LABS: Calcium 8.3 mg/dL (8.6-10.3); Potassium 3.8 mEq/L (3.5-5.1)
[2018-04-20] MEDS: *HR* Heparin 5,000 UNIT/ML VIAL SQ SCH ×2 (06:29→17:30)
--- NOTE | 2018-04-20 08:31 | Internal Med Progress Note ---
<ArrietaFredrick - Last Filed: 04/20/18 12:34> Hospitalist Progress Note - Encounter Date of Encounter: 04/20/18 - Exam Vitals: Temp Pulse Resp BP Pulse Ox 98.8 F 106 18 99/63 98 04/20/18 10:58 04/20/18 10:58 04/20/18 11:15 04/20/18 10:58 04/20/18 11:15 - Assessment and Plan (1) Lytic bone lesion of femur Current Visit: Yes Status: Acute - Time Spent with Patient Total time spent is greater than 50% in coordination of care (as documented) at patient's floor/unit and/or counseling patient: Internal Medicine: Result - Labs CBC & Chem 7: 04/20/18 04:19 04/20/18 04:19 Labs: Short CBC 04/20/18 Range/Units 04:19 WBC 3.9 L (4.3-11.1) K/mcL Hgb 7.7 L (11.5-15.4) g/dL Hct 25.0 L (35.3-44.9) % Plt Count 96 L (140-400) K/mcL Neutrophils # 2.7 (1.6-8.9) K/mcL BMP 04/19/18 04/20/18 04:41 04:19 Sodium 141 140 Potassium 3.1 L 3.8 Chloride 109 H 112 H Carbon Dioxide 27 25 BUN 54 H 40 H Creatinine 3.16 H 2.13 H Glucose 92 97 Calcium 8.1 L 8.3 L Consult Discharge Plan - Plan Referrals: Coral Grossman, ENROBING MACHINE OPERATOR [Primary Care Provider] - - Attending Attestation I performed an independent interview and exam of this patient. I agree with the findings, assessment and plan of Dr. Barry, Int Med editing internship. Briefly this is a 69-year-old female with a history of bilateral breast cancer status post treatment for cancer many years ago. She also has a history of hypertension, COPD and ongoing tobacco abuse. Patient was admitted for acute renal failure, weakness, and also noted to have a lytic lesion on her left femur. She is suspected of having acute on chronic renal failure. Concerned for this lytic lesion includes multiple myeloma, versus other malignancy. As her renal function has improved we are now consulting hematology oncology for further recommendations regarding approach. Her SPEP and UPEP are still pending. Exam: Cachectic, conversational dyspnea NEck supple Lung dimin bs bilat Htrrr Abd soft + BS, NT Ext no sig edema <[place] Barry - Last Filed: 04/20/18 14:18> Hospitalist Progress Note - Encounter Date of Encounter: 04/20/18 Time of Encounter: 09:58 - Subjective Interval History: Ms. Kim is a 77F with PMH of HTN, STEMI, and COPD, who originally presented to the ED on 04/17 after abnormal lab results were reported by her PCP. She had a fall at home several weeks before and a lumbar and pelvic xray were obtained. A lytic lesion was noted on the left femoral intertrochanteric region. Labs from the PCP revealed macrocytic anemia and hyponatremia. It was discovered that the pt had also been experiencing lethargy and weight loss. Head CT from the ED was normal. Retroperitoneal ultrasound was suggestive of underlying chronic renal disease. Elevated protein in the urine was also noted and SPEP and UPEP were obtained, awaiting results. Pt seen and examined at bedside today. No acute events overnight. Pt has no new or acute complaints. Denies any fever, chills, chest pain, shortness of breath, abdominal pain, nausea, vomiting, urinary pain or difficulties, headache, numbness, or tingling. - Exam Vitals: Temp Pulse Resp BP Pulse Ox 99.4 F 113 18 111/45 97 04/20/18 06:56 04/20/18 06:56 04/20/18 07:28 04/20/18 06:56 04/20/18 07:28 Exam: Constitutional: cachectic female. no acute distress. refuses to make eye contact. Head: Normocephalic, atraumatic Eyes: PERRL, EOMI, conjunctiva pink, sclera anicteric Neck: Supple, trachea midline, no lymphadenopathy Lungs: Clear to auscultation bilaterally. Nonlabored breathing. No wheezes, rales, or rhonchi noted. Cardiac: RRR. No murmurs, clicks, or rubs noted. GI: Abdomen soft, nontender, mildly distended. Normoactive bowel sounds Extremities: Warm, radial pulses palpable and symmetrical. No cyanosis, pedal edema, or calf tenderness. Neuro: Alert and oriented 3. No focal deficits. Normal speech. Skin: Warm, dry, and intact. - Assessment and Plan (1) Lytic bone lesion of femur Current Visit: Yes Status: Acute Assessment and Plan: Lytic lesion of the left femoral intertrochanteric xray was originally obtained after a fall several weeks ago pt admits to fatigue and weight loss Bone survey on 04/17 showed small lucent lesion in proximal left femur Awaiting UPEP and SPEP, concerned for multiple myeloma with elevated protein in urine Consult heme/onc for further recs (2) Renal failure Current Visit: Yes Status: Acute Assessment and Plan: New onset renal failure with creatinine 5.6, improved at 2.13 today - renal ultrasound revealed echogenicity of renal cortex in upper limits of normal, along with relatively hypoechoic renal medullary pyramids, consistent with chronic renal disease - No urine eosinophils - Urine sodium normal at 88.6 - Total urine protein elevated, but albumin normal, likely increased globulins related to multiple myeloma Kidney functions improving Appreciate nephro recs Continue IVF (3) Malnourished Current Visit: Yes Status: Acute Assessment and Plan: Pt aappears ill and cachectic Appreciate nutrition consult Ensure with meals TID (4) Hypotension Current Visit: Yes Status: Acute Assessment and Plan: Improved at 111/45 this am Continue IVF Continue to hold home metoprolol, losartan, and HCTZ (5) Anemia Current Visit: Yes Status: Acute Assessment and Plan: Likely chronic related to underlying CKD Hb had dropped to 6.4 on 04/18 Transfused 1 unit pRBCs on 04/18 H&H stable today at 7.7 and 25.0 respectively (6) Tobacco use Current Visit: No Status: Chronic Assessment and Plan: hx of smoking DVT Prophylaxis: SQ heparin - Time Spent with Patient Total time spent is greater than 50% in coordination of care (as documented) at patient's floor/unit and/or counseling patient: Internal Medicine: Result - Labs CBC & Chem 7: 04/20/18 04:19 04/20/18 04:19 Labs: Short CBC 04/20/18 Range/Units 04:19 WBC 3.9 L (4.3-11.1) K/mcL Hgb 7.7 L (11.5-15.4) g/dL Hct 25.0 L (35.3-44.9) % Plt Count 96 L (140-400) K/mcL Neutrophils # 2.7 (1.6-8.9) K/mcL BMP 04/19/18 04/20/18 04:41 04:19 Sodium 141 140 Potassium 3.1 L 3.8 Chloride 109 H 112 H Carbon Dioxide 27 25 BUN 54 H 40 H Creatinine 3.16 H 2.13 H Glucose 92 97 Calcium 8.1 L 8.3 L <[place] Barry - Last Filed: 04/20/18 14:18> (2) Renal failure Qualifiers: Renal failure chronicity: unspecified chronicity Qualified Code(s): N19 - Unspecified kidney failure (3) Malnourished Qualifiers: Malnutrition type: unspecified type Qualified Code(s): E46 - Unspecified protein-calorie malnutrition (4) Hypotension Qualifiers: Hypotension type: unspecified hypotension type Qualified Code(s): I95.9 - Hypotension, unspecified (5) Anemia Qualifiers: Anemia type: unspecified type Qualified Code(s): D64.9 - Anemia, unspecified
[2018-04-20] MEDS: Nicotine 21 MG PATCH.TD24 TD SCH (09:21)
[2018-04-20] MEDS: Aspirin Enteric Coated 81 MG Tablet PO SCH (09:21)
[2018-04-20] MEDS ORDERED: Ipratropium/Albuterol Neb 3 ML ONE (11:07)
--- NOTE | 2018-04-20 12:27 | Nephrology Progress Note ---
Date of Encounter: 04/20/18 Time of Encounter: 12:00 - Assessment and Plan (1) LAUREN (acute kidney injury) Current Visit: Yes Status: Acute (2) Lytic bone lesion of femur Current Visit: Yes Status: Acute (3) Anemia Current Visit: Yes Status: Acute Qualifiers: Anemia type: unspecified type Qualified Code(s): D64.9 - Anemia, unspecified (4) Hyponatremia Current Visit: Yes Status: Acute Subjective Interval history: Pt seen and examined with family at bedside resting comfortably. Per son did not have alot of sleep last night Objective - Vital Signs Vital signs: Vital Signs Temp Pulse Resp BP Pulse Ox 04/20/18 11:15 18 98 04/20/18 10:58 98.8 F 106 15 99/63 99 04/20/18 07:28 18 97 04/20/18 06:56 99.4 F 113 16 111/45 93 04/20/18 04:28 98.0 F 99 16 100/63 96 04/20/18 03:58 20 100 04/20/18 00:15 98.5 F 105 18 101/62 100 04/19/18 23:43 18 100 04/19/18 20:18 18 100 04/19/18 19:24 98.2 F 101 18 101/63 100 04/19/18 15:59 18 97 Intake and Output 04/19/18 04/20/18 04/20/18 23:59 07:59 15:59 Intake Total 0 / 0 1000 / 1000 Output Total 0 / 0 Balance 0 / 0 1000 / 1000 Intake: IV Fluids 1000 / 1000 0.9 % Sodium Chloride 1,000 ML 1000 / 1000 @ 100 mls/hr IVC .Q10H SAMMY Rx#: [id number] Oral 0 / 0 0 / 0 Output: Urine 0 / 0 Other: # Voids 1 1 Weight 48.5 kg Patient Weight 04/20/18 23:59 Weight 48.5 kg - Lab 04/20/18 04:19 04/20/18 04:19 Most recent lab results Calcium 8.3 mg/dL (8.6-10.3) L 04/20/18 04:19 Phosphorus 5.6 mg/dL (2.7-4.5) H 04/17/18 12:20 Magnesium 3.2 mg/dL (1.6-2.6) H 04/17/18 12:20 Urine Creatinine 97 mg/dL 04/18/18 13:57 Urine Sodium 88.6 mEq/L 04/18/18 13:57 Urine Total Protein 97 mg/dL (1-14) H 04/18/18 04:31 Consult Discharge Plan - Plan Referrals: Coral Grossman, RAISSA [Primary Care Provider] -
--- NOTE | 2018-04-20 16:06 | Oncology Inp Consult Note ---
<Zeinab Sanz Bj - Last Filed: 04/20/18 17:57> Date of Encounter: 04/20/18 Time of Encounter: 15:30 Assessment and Plan (1) Lytic bone lesion of femur Status: Acute Assessment and plan: Noted on complete bone survey, we will obtain NM bone scan to better classify this and may consider consider lytic lesion bone bx versus bone marrow biopsy dependent upon further workup. Suspect this is likely secondary to malignant process such as multiple myeloma, metastatic disease from recurrent breast cancer or potentially new primary. Patients history of lobular breast cancer does raise possibility of long-term recurrence of disease. We will also obtain CT chest/abd/pelvis with oral contrast CRAB- Calcium normal, acute renal failure-improving since admission, reviewed nephrology's note, macrocytic anemia present (nutritional stores replete), bone lesion as described above/in bone survey SPEP, UPEP, Serum free light chains pending LDH 219 Further recommendations pending workup as above Patient and family are open to further workup with the intent to pursue treatment at this time (2) Anemia Status: Acute Assessment and plan: Acute, macrocytic anemia (MCV 104 on admission), s/p 1 unit PRBC Iron, folate, B12 are replete Stool guaiac-pending Given concomitant thrombocytopenia, MDS (potentially treatment related) remains within differential, although less likely given overall presentation Continue to monitor, transfuse as needed Qualifiers: Qualified Code(s): D64.9 - Anemia, unspecified (3) LAUREN (acute kidney injury) Status: Acute Assessment and plan: Improving per nephrology's recommendations, Creatinine 2.13 today (4.3 on admission) - Data of Consult Patient: new to practice Consult date: 04/20/18 Requesting Physician: Jean Claude Barton DO Primary Care Provider: Coral Grossman CNP - Consult Narrative Reason for consult: Anemia, lytic lesion left femur History of present illness: Ms. Kim is a 77 year old female with past medical history significant for chronic smoker, hypertension, STEMI and malnutrition. Patient initially presented to ER following direction of PCP for abnormal labs, specifically related to ARF, hyponatremia and anemia. Ms. Kim had a fall at home several weeks ago where pelvic x-ray had shown an area concerning for new finding of lytic lesion to her left femoral intertrochanteric region. Bone survey on 04/17/18 revealed small lucent lesion in the proximal left femur. Nephrology was initially consulted for recommendations and renal function is improving since admission with rehydration. Oncology has been consulted for further workup and recommendations. Ms. Young has a history of right breast cancer in January 2002. This was initially treated with attempted right breast conserving surgery and right axillary sentinel lymph node biopsy procedure on 03/04/2002 and subsequently treated with right modified radical mastectomy on 03/17/2002. According to [facility] records, pathology revealed multicentric disease, 1124 lymph nodes involved, ER negative, WV negative. She was enrolled in a NSABP B30 clinical trial, and she received adjuvant chemotherapy, 4 cycles of Adriamycin and Cytoxan followed by 4 cycles of Taxotere. The patient then underwent radiation treatment to the right chest wall. Ms. Kim had a left mammography in May 2009 that showed multiple areas of suspicion by ultrasound in the upper outer aspect of the left breast. Biopsy of those lesions showed invasive lobular carcinoma. Subsequently the patient underwent left modified radical mastectomy on June 23, 2009. Final pathology report showed multifocal ( at least 3 foci) 1.1 cm (greatest dimension of the largest tumor focus); second nodule 0.5 x 0.4 x 0.4 cm; third nodule 1.0 x 1.0 x 0.6 cm. Histologic type: Invasive lobular carcinoma with a tubulolobular component of grade 2. Peritumoral lymphatic/vascular invasion was present focally. Margins were free of tumor. Distance to closest margin: 0.8 cm to deep margin of resection. One out of 4 sentinel lymph nodes was positive. Size of largest metastasis: 0.2 cm (micrometastasis). Extranodal extension was not identified. Full axillary lymph node dissection showed that 0/24 were positive. This time tumor cells were estrogen receptors positive ( 100%), progesterone receptors low positive ( 5% ). HER-2/rob protein expression was negative (IHC score 1+) and not amplified by FISH. Since the patient was treated with adjuvant AC and Taxotere in 2001, she did not receive adjuvant systemic chemotherapy, but was placed on Arimidex. Ms. Kim lives alone. Patients family report a noticeable change recently in her energy level. Patient declines weight loss or decreased appetite, however , patients daughter in law reports about a 15 pound weight loss on her admission weight. Ms. Kim denies pain, SOB, orthopnea, s/s bleeding, nausea , vomiting or bowel habit changes. Past Med Surg Social Fam HX - Past Medical History Medical history: non-contributory, cancer, COPD, myocardial infarction Additional medical history: Breast Psychiatric history: no psych history - Past Surgical History Surgical History: angioplasty/stent (R common iliac stent), breast surgery ( bilateral mastectomy), hysterectomy, orthopedic, other (R foot) Additional surgical history: Heart Stent - Social History Smoking Status: Current every day smoker Smokeless Tobacco Status: No Alcohol use: none Drug use: none - Family History Father Family Member Ethnicity: Non- Living Status: Hx Family Cardiac Disorders: No Hx Family Respiratory Disorders: No Hx Family Cancer: No Hx Family GI Disorders: No Hx Family Endocrine Disorder: Yes (grandmother) Hx Family Neuromuscular Disorders: No Hx Family Neurologic Disorders: No Hx Family HEENT Disorders: No Hx Family Autoimmune Disorders: No Medications and Allergies Ibandronate Sodium [Boniva] 150 mg PO QMONTH 08/20/15 [History] Temazepam [Restoril] 15 mg PO HS 08/20/15 [History] Clopidogrel [Plavix] 75 mg PO DAILY #30 tablet 08/22/15 [Rx] Metoprolol XL (24 HR) Succ [Toprol XL] 25 mg PO DAILY #30 tab.er.24h 08/22/15 [ Rx] Nitroglycerin 0.4 mg SL Q5MIN PRN #25 tab.subl 08/22/15 [Rx] predniSONE [PredniSONE] 20 mg PO DAILY 12 Days #24 tablet 04/07/18 [Rx] Lidocaine Patch [Lidoderm 5% patch] 1 each TP DAILY PRN #7 adh..patch 04/08/18 [ Rx] Aspirin Enteric Coated [Aspirin EC] 81 mg PO DAILY 04/17/18 [History] Furosemide [Lasix] 20 mg PO DAILY 04/17/18 [History] LORazepam [Ativan] 1 - 2 mg PO DAILY PRN 04/17/18 [History] Losartan/Hydrochlorothiazide [Losartan-Hctz 100-25 mg Tab] 0.5 tab PO DAILY [History] Rosuvastatin Calcium [Rosuvastatin Calcium] 40 mg PO DAILY 04/17/18 [History] 3 Allergy/AdvReac Type Severity Reaction Status Date / Time Erythromycin Base Allergy Rash Verified 04/08/18 12:26 Penicillins Allergy Hives Verified 04/08/18 12:26 Constitutional: Present: fatigue, weakness. Absent: anorexia, chills, fever(s) , night sweats Additional comments: weight loss noted per patients family Eyes: Absent: change in vision Nose, mouth and throat: Absent: dysphagia, odynophagia Additional comments: declines changes to chest wall Cardiovascular: Absent: chest pain, edema, orthopnea, palpitations Respiratory: Absent: cough, dyspnea, hemoptysis Gastrointestinal: Absent: abdominal pain, change in bowel habits, hematemesis, hematochezia, melena, nausea, vomiting Genitourinary: Absent: dysuria Musculoskeletal: Present: muscle weakness Integumentary: Absent: rash, wounds Neurological: Present: frequent falls. Absent: focal weakness Hematologic/Lymphatic: Present: as per HPI Oncology - Exam - Constitutional Vitals: Temp Pulse Resp BP Pulse Ox 98.4 F 91 16 111/68 97 04/20/18 15:43 04/20/18 15:43 04/20/18 15:43 04/20/18 15:43 04/20/18 15:43 General appearance: no acute distress, thin, no febrile - Head Head exam: Present: atraumatic - ENT ENT exam: Present: mucous membranes moist - Respiratory Respiratory exam: Present: CTAB. Absent: respiratory distress - Cardiovascular Cardiovascular exam: Present: RRR, +S1, +S2 - GI/Abdominal GI/Abdominal exam: Present: normal bowel sounds. Absent: firm, guarding, rebound Additional comments: mildly distended - Extremities Exam Extremities exam: Absent: calf tenderness - Neurological Exam Neurological exam: Present: alert, oriented X3, no focal deficits - Psychiatric Psychiatric exam: Present: normal affect, normal mood - Skin Skin exam: Present: dry, intact, pallor, warm Oncology - Results Labs: 3 04/20/18 04/20/18 04/20/18 04:19 04:19 04:19 WBC 3.9 L RBC 2.42 L Hgb 7.7 L Hct 25.0 L MCV 103.3 H MCH 31.8 MCHC 30.8 L RDW 22.6 H Plt Count 96 L MPV 10.3 Immature Gran % 0.8 Seg Neutrophils % 68.5 Lymphocytes % 21.3 Monocytes % 8.6 Eosinophils % 0.5 Basophils % 0.3 Neutrophils # 2.7 Lymphocytes # 0.8 Monocytes # 0.3 Eosinophils # 0.0 Basophils # 0.0 Nucleated RBCs/100 WBC 1.0 H Sodium 140 Potassium 3.8 Chloride 112 H Carbon Dioxide 25 BUN 40 H Creatinine 2.13 H Est GFR ( Amer) 27 L Est GFR (Non-Af Amer) 22 L BUN/Creatinine Ratio 19 Glucose 97 Calculated Osmolality 300 Uric Acid Calcium 8.3 L Venous Ioniz Calcium Iron % Saturation Transferrin Ferritin Lactate Dehydrogenase Vitamin B12 Folate 19.3 H Urine Color Urine Clarity Urine pH Ur Specific [place] Urine Protein Urine Glucose (UA) Urine Ketones Urine Blood Urine Nitrite Urine Bilirubin Urine Urobilinogen Ur Leukocyte Esterase Urine Microscopic RBC Urine Microscopic WBC Ur Eosinophil Smear Ur Squamous Epith Cells Urine Bacteria Ur Culture Indicated? Urine Creatinine Urine Microalbumin Microalb/Creat Ratio Protein/Creatinin Ratio Urine Sodium Urine Total Protein Specimen Rejected Blood Type Antibody Screen Crossmatch 3 04/19/18 04/19/18 04/18/18 04:51 04:41 13:58 WBC 2.9 L RBC 2.25 L Hgb 7.3 L Hct 22.4 L MCV 99.6 MCH 32.4 MCHC 32.6 RDW 22.8 H Plt Count 101 L MPV 10.8 Immature Gran % 0.7 Seg Neutrophils % 66.8 Lymphocytes % 23.1 Monocytes % 8.7 Eosinophils % 0.7 Basophils % 0.0 Neutrophils # 1.9 Lymphocytes # 0.7 Monocytes # 0.3 Eosinophils # 0.0 Basophils # 0.0 Nucleated RBCs/100 WBC 2.1 H Sodium 141 Potassium 3.1 L Chloride 109 H Carbon Dioxide 27 BUN 54 H Creatinine 3.16 H Est GFR ( Amer) 17 L Est GFR (Non-Af Amer) 14 L BUN/Creatinine Ratio 17 Glucose 92 Calculated Osmolality 306 H Uric Acid Calcium 8.1 L Venous Ioniz Calcium Iron 44 L % Saturation 18 Transferrin 177 L Ferritin 605 H Lactate Dehydrogenase Vitamin B12 Folate Urine Color Urine Clarity Urine pH Ur Specific [place] Urine Protein Urine Glucose (UA) Urine Ketones Urine Blood Urine Nitrite Urine Bilirubin Urine Urobilinogen Ur Leukocyte Esterase Urine Microscopic RBC Urine Microscopic WBC Ur Eosinophil Smear 0 Ur Squamous Epith Cells Urine Bacteria Ur Culture Indicated? Urine Creatinine Urine Microalbumin Microalb/Creat Ratio Protein/Creatinin Ratio Urine Sodium Urine Total Protein Specimen Rejected Blood Type Antibody Screen Crossmatch 3 04/18/18 04/18/18 04/18/18 13:57 12:24 07:53 WBC RBC Hgb Hct MCV MCH MCHC RDW Plt Count MPV Immature Gran % Seg Neutrophils % Lymphocytes % Monocytes % Eosinophils % Basophils % Neutrophils # Lymphocytes # Monocytes # Eosinophils # Basophils # Nucleated RBCs/100 WBC Sodium 135 L Potassium 3.4 L Chloride 104 Carbon Dioxide 26 BUN 63 H Creatinine 4.36 H Est GFR ( Amer) 12 L Est GFR (Non-Af Amer) 10 L BUN/Creatinine Ratio 14 Glucose 94 Calculated Osmolality 298 Uric Acid 8.4 H Calcium 8.1 L Venous Ioniz Calcium Iron % Saturation Transferrin Ferritin Lactate Dehydrogenase 219 Vitamin B12 Folate Urine Color Urine Clarity Urine pH Ur Specific [place] Urine Protein Urine Glucose (UA) Urine Ketones Urine Blood Urine Nitrite Urine Bilirubin Urine Urobilinogen Ur Leukocyte Esterase Urine Microscopic RBC Urine Microscopic WBC Ur Eosinophil Smear Ur Squamous Epith Cells Urine Bacteria Ur Culture Indicated? Urine Creatinine 97 Urine Microalbumin 48 Microalb/Creat Ratio 49 H Protein/Creatinin Ratio Urine Sodium 88.6 Urine Total Protein Specimen Rejected Blood Type O POSITIVE Antibody Screen NEGATIVE Crossmatch See Detail 3 04/18/18 04/18/18 04/18/18 07:26 05:14 05:14 WBC 3.3 L RBC 1.93 L Hgb 6.4 L D Hct 20.3 L MCV 105.2 H MCH 33.2 MCHC 31.5 L RDW 20.2 H Plt Count 118 L MPV 9.9 Immature Gran % 0.6 Seg Neutrophils % 65.7 Lymphocytes % 24.2 Monocytes % 9.2 Eosinophils % 0.3 Basophils % 0.0 Neutrophils # 2.2 Lymphocytes # 0.8 Monocytes # 0.3 Eosinophils # 0.0 Basophils # 0.0 Nucleated RBCs/100 WBC 1.8 H Sodium Potassium Chloride Carbon Dioxide BUN Creatinine Est GFR ( Amer) Est GFR (Non-Af Amer) BUN/Creatinine Ratio Glucose Calculated Osmolality Uric Acid Calcium Venous Ioniz Calcium Iron % Saturation Transferrin Ferritin Lactate Dehydrogenase Vitamin B12 1403 H Folate Urine Color Urine Clarity Urine pH Ur Specific [place] Urine Protein Urine Glucose (UA) Urine Ketones Urine Blood Urine Nitrite Urine Bilirubin Urine Urobilinogen Ur Leukocyte Esterase Urine Microscopic RBC Urine Microscopic WBC Ur Eosinophil Smear Ur Squamous Epith Cells Urine Bacteria Ur Culture Indicated? Urine Creatinine Urine Microalbumin Microalb/Creat Ratio Protein/Creatinin Ratio Urine Sodium Urine Total Protein Specimen Rejected Miscellaneous Blood Type Antibody Screen Crossmatch 3 04/18/18 04/18/18 04/17/18 05:14 04:31 Unknown WBC RBC Hgb Hct MCV MCH MCHC RDW Plt Count MPV Immature Gran % Seg Neutrophils % Lymphocytes % Monocytes % Eosinophils % Basophils % Neutrophils # Lymphocytes # Monocytes # Eosinophils # Basophils # Nucleated RBCs/100 WBC Sodium 135 L Potassium 3.5 Chloride 103 Carbon Dioxide 25 BUN 66 H Creatinine 4.62 H Est GFR ( Amer) 11 L Est GFR (Non-Af Amer) 9 L BUN/Creatinine Ratio 14 Glucose 92 Calculated Osmolality 299 Uric Acid Calcium 8.1 L Venous Ioniz Calcium Iron % Saturation Transferrin Ferritin Lactate Dehydrogenase Vitamin B12 Folate Urine Color Dark Yellow Urine Clarity Hazy A Urine pH 5.0 Ur Specific [place] 1.027 H Urine Protein 100 H Urine Glucose (UA) Normal Urine Ketones Trace H Urine Blood Large H Urine Nitrite Negative Urine Bilirubin Moderate H Urine Urobilinogen Normal Ur Leukocyte Esterase Trace H Urine Microscopic RBC 5-15 H Urine Microscopic WBC 15-30 H Ur Eosinophil Smear Ur Squamous Epith Cells Many H Urine Bacteria Moderate H Ur Culture Indicated? NO. A Urine Creatinine 90 Urine Microalbumin Microalb/Creat Ratio Protein/Creatinin Ratio 1.08 H Urine Sodium Urine Total Protein 97 H Specimen Rejected Blood Type Antibody Screen Crossmatch 3 04/17/18 19:19 WBC RBC Hgb Hct MCV MCH MCHC RDW Plt Count MPV Immature Gran % Seg Neutrophils % Lymphocytes % Monocytes % Eosinophils % Basophils % Neutrophils # Lymphocytes # Monocytes # Eosinophils # Basophils # Nucleated RBCs/100 WBC Sodium Potassium Chloride Carbon Dioxide BUN Creatinine Est GFR ( Amer) Est GFR (Non-Af Amer) BUN/Creatinine Ratio Glucose Calculated Osmolality Uric Acid Calcium Venous Ioniz Calcium 1.10 L Iron % Saturation Transferrin Ferritin Lactate Dehydrogenase Vitamin B12 Folate Urine Color Urine Clarity Urine pH Ur Specific [place] Urine Protein Urine Glucose (UA) Urine Ketones Urine Blood Urine Nitrite Urine Bilirubin Urine Urobilinogen Ur Leukocyte Esterase Urine Microscopic RBC Urine Microscopic WBC Ur Eosinophil Smear Ur Squamous Epith Cells Urine Bacteria Ur Culture Indicated? Urine Creatinine Urine Microalbumin Microalb/Creat Ratio Protein/Creatinin Ratio Urine Sodium Urine Total Protein Specimen Rejected Blood Type Antibody Screen Crossmatch Consult Discharge Plan - Plan Referrals: Coral Grossman, ASSISTANT FRONT OFFICE MANAGER [Primary Care Provider] - <Arun Albrecht - Last Filed: 04/20/18 21:02> Date of Encounter: 04/20/18 - Data of Consult Requesting Physician: Jean Claude Barton DO Primary Care Provider: Coral Grossman CNP - Consult Narrative History of present illness: Ms. Kim is a 77 year old female Oncology - Exam - Constitutional Vitals: Temp Pulse Resp BP Pulse Ox 97.6 F 92 15 127/77 95 04/20/18 19:29 04/20/18 19:29 04/20/18 19:29 04/20/18 19:29 04/20/18 19:29 Oncology - Results Labs: 3 04/20/18 04/20/18 04/20/18 04:19 04:19 04:19 WBC 3.9 L RBC 2.42 L Hgb 7.7 L Hct 25.0 L MCV 103.3 H MCH 31.8 MCHC 30.8 L RDW 22.6 H Plt Count 96 L MPV 10.3 Immature Gran % 0.8 Seg Neutrophils % 68.5 Lymphocytes % 21.3 Monocytes % 8.6 Eosinophils % 0.5 Basophils % 0.3 Neutrophils # 2.7 Lymphocytes # 0.8 Monocytes # 0.3 Eosinophils # 0.0 Basophils # 0.0 Nucleated RBCs/100 WBC 1.0 H Sodium 140 Potassium 3.8 Chloride 112 H Carbon Dioxide 25 BUN 40 H Creatinine 2.13 H Est GFR ( Amer) 27 L Est GFR (Non-Af Amer) 22 L BUN/Creatinine Ratio 19 Glucose 97 Calculated Osmolality 300 Uric Acid Calcium 8.3 L Venous Ioniz Calcium Iron % Saturation Transferrin Ferritin Lactate Dehydrogenase Vitamin B12 Folate 19.3 H Urine Color Urine Clarity Urine pH Ur Specific [place] Urine Protein Urine Glucose (UA) Urine Ketones Urine Blood Urine Nitrite Urine Bilirubin Urine Urobilinogen Ur Leukocyte Esterase Urine Microscopic RBC Urine Microscopic WBC Ur Eosinophil Smear Ur Squamous Epith Cells Urine Bacteria Ur Culture Indicated? Urine Creatinine Urine Microalbumin Microalb/Creat Ratio Protein/Creatinin Ratio Urine Sodium Urine Total Protein Specimen Rejected Blood Type Antibody Screen Crossmatch 3 04/19/18 04/19/18 04/18/18 04:51 04:41 13:58 WBC 2.9 L RBC 2.25 L Hgb 7.3 L Hct 22.4 L MCV 99.6 MCH 32.4 MCHC 32.6 RDW 22.8 H Plt Count 101 L MPV 10.8 Immature Gran % 0.7 Seg Neutrophils % 66.8 Lymphocytes % 23.1 Monocytes % 8.7 Eosinophils % 0.7 Basophils % 0.0 Neutrophils # 1.9 Lymphocytes # 0.7 Monocytes # 0.3 Eosinophils # 0.0 Basophils # 0.0 Nucleated RBCs/100 WBC 2.1 H Sodium 141 Potassium 3.1 L Chloride 109 H Carbon Dioxide 27 BUN 54 H Creatinine 3.16 H Est GFR ( Amer) 17 L Est GFR (Non-Af Amer) 14 L BUN/Creatinine Ratio 17 Glucose 92 Calculated Osmolality 306 H Uric Acid Calcium 8.1 L Venous Ioniz Calcium Iron 44 L % Saturation 18 Transferrin 177 L Ferritin 605 H Lactate Dehydrogenase Vitamin B12 Folate Urine Color Urine Clarity Urine pH Ur Specific [place] Urine Protein Urine Glucose (UA) Urine Ketones Urine Blood Urine Nitrite Urine Bilirubin Urine Urobilinogen Ur Leukocyte Esterase Urine Microscopic RBC Urine Microscopic WBC Ur Eosinophil Smear 0 Ur Squamous Epith Cells Urine Bacteria Ur Culture Indicated? Urine Creatinine Urine Microalbumin Microalb/Creat Ratio Protein/Creatinin Ratio Urine Sodium Urine Total Protein Specimen Rejected Blood Type Antibody Screen Crossmatch 3 04/18/18 04/18/18 04/18/18 13:57 12:24 07:53 WBC RBC Hgb Hct MCV MCH MCHC RDW Plt Count MPV Immature Gran % Seg Neutrophils % Lymphocytes % Monocytes % Eosinophils % Basophils % Neutrophils # Lymphocytes # Monocytes # Eosinophils # Basophils # Nucleated RBCs/100 WBC Sodium 135 L Potassium 3.4 L Chloride 104 Carbon Dioxide 26 BUN 63 H Creatinine 4.36 H Est GFR ( Amer) 12 L Est GFR (Non-Af Amer) 10 L BUN/Creatinine Ratio 14 Glucose 94 Calculated Osmolality 298 Uric Acid 8.4 H Calcium 8.1 L Venous Ioniz Calcium Iron % Saturation Transferrin Ferritin Lactate Dehydrogenase 219 Vitamin B12 Folate Urine Color Urine Clarity Urine pH Ur Specific [place] Urine Protein Urine Glucose (UA) Urine Ketones Urine Blood Urine Nitrite Urine Bilirubin Urine Urobilinogen Ur Leukocyte Esterase Urine Microscopic RBC Urine Microscopic WBC Ur Eosinophil Smear Ur Squamous Epith Cells Urine Bacteria Ur Culture Indicated? Urine Creatinine 97 Urine Microalbumin 48 Microalb/Creat Ratio 49 H Protein/Creatinin Ratio Urine Sodium 88.6 Urine Total Protein Specimen Rejected Blood Type O POSITIVE Antibody Screen NEGATIVE Crossmatch See Detail 3 04/18/18 04/18/18 04/18/18 07:26 05:14 05:14 WBC 3.3 L RBC 1.93 L Hgb 6.4 L D Hct 20.3 L MCV 105.2 H MCH 33.2 MCHC 31.5 L RDW 20.2 H Plt Count 118 L MPV 9.9 Immature Gran % 0.6 Seg Neutrophils % 65.7 Lymphocytes % 24.2 Monocytes % 9.2 Eosinophils % 0.3 Basophils % 0.0 Neutrophils # 2.2 Lymphocytes # 0.8 Monocytes # 0.3 Eosinophils # 0.0 Basophils # 0.0 Nucleated RBCs/100 WBC 1.8 H Sodium Potassium Chloride Carbon Dioxide BUN Creatinine Est GFR ( Amer) Est GFR (Non-Af Amer) BUN/Creatinine Ratio Glucose Calculated Osmolality Uric Acid Calcium Venous Ioniz Calcium Iron % Saturation Transferrin Ferritin Lactate Dehydrogenase Vitamin B12 1403 H Folate Urine Color Urine Clarity Urine pH Ur Specific [place] Urine Protein Urine Glucose (UA) Urine Ketones Urine Blood Urine Nitrite Urine Bilirubin Urine Urobilinogen Ur Leukocyte Esterase Urine Microscopic RBC Urine Microscopic WBC Ur Eosinophil Smear Ur Squamous Epith Cells Urine Bacteria Ur Culture Indicated? Urine Creatinine Urine Microalbumin Microalb/Creat Ratio Protein/Creatinin Ratio Urine Sodium Urine Total Protein Specimen Rejected Miscellaneous Blood Type Antibody Screen Crossmatch 3 04/18/18 04/18/18 04/17/18 05:14 04:31 Unknown WBC RBC Hgb Hct MCV MCH MCHC RDW Plt Count MPV Immature Gran % Seg Neutrophils % Lymphocytes % Monocytes % Eosinophils % Basophils % Neutrophils # Lymphocytes # Monocytes # Eosinophils # Basophils # Nucleated RBCs/100 WBC Sodium 135 L Potassium 3.5 Chloride 103 Carbon Dioxide 25 BUN 66 H Creatinine 4.62 H Est GFR ( Amer) 11 L Est GFR (Non-Af Amer) 9 L BUN/Creatinine Ratio 14 Glucose 92 Calculated Osmolality 299 Uric Acid Calcium 8.1 L Venous Ioniz Calcium Iron % Saturation Transferrin Ferritin Lactate Dehydrogenase Vitamin B12 Folate Urine Color Dark Yellow Urine Clarity Hazy A Urine pH 5.0 Ur Specific [place] 1.027 H Urine Protein 100 H Urine Glucose (UA) Normal Urine Ketones Trace H Urine Blood Large H Urine Nitrite Negative Urine Bilirubin Moderate H Urine Urobilinogen Normal Ur Leukocyte Esterase Trace H Urine Microscopic RBC 5-15 H Urine Microscopic WBC 15-30 H Ur Eosinophil Smear Ur Squamous Epith Cells Many H Urine Bacteria Moderate H Ur Culture Indicated? NO. A Urine Creatinine 90 Urine Microalbumin Microalb/Creat Ratio Protein/Creatinin Ratio 1.08 H Urine Sodium Urine Total Protein 97 H Specimen Rejected Blood Type Antibody Screen Crossmatch 3 04/17/18 19:19 WBC RBC Hgb Hct MCV MCH MCHC RDW Plt Count MPV Immature Gran % Seg Neutrophils % Lymphocytes % Monocytes % Eosinophils % Basophils % Neutrophils # Lymphocytes # Monocytes # Eosinophils # Basophils # Nucleated RBCs/100 WBC Sodium Potassium Chloride Carbon Dioxide BUN Creatinine Est GFR ( Amer) Est GFR (Non-Af Amer) BUN/Creatinine Ratio Glucose Calculated Osmolality Uric Acid Calcium Venous Ioniz Calcium 1.10 L Iron % Saturation Transferrin Ferritin Lactate Dehydrogenase Vitamin B12 Folate Urine Color Urine Clarity Urine pH Ur Specific [place] Urine Protein Urine Glucose (UA) Urine Ketones Urine Blood Urine Nitrite Urine Bilirubin Urine Urobilinogen Ur Leukocyte Esterase Urine Microscopic RBC Urine Microscopic WBC Ur Eosinophil Smear Ur Squamous Epith Cells Urine Bacteria Ur Culture Indicated? Urine Creatinine Urine Microalbumin Microalb/Creat Ratio Protein/Creatinin Ratio Urine Sodium Urine Total Protein Specimen Rejected Blood Type Antibody Screen Crossmatch - Attending Attestation I have seen and examined the patient repeat assessment been placed by Ms. Sanz. Ms. Kim is a very pleasant 77-year-old woman who presented with acute kidney injury, macrocytic anemia, thrombocytopeni as well as a lytic left intertrochanteric femoral lesion. She has a history of triple negative lobular breast cancer in 2001 and then a contralateral breast lobular breast cancer in 2008 which was ER positive, WV positive and HER-2/rob negative. She is status post bilateral mastectomy and completed a five-year course of adjuvant antiestrogen therapy. She was presumed managed at [facility]. She has received radiation therapy in the past. She is very withdrawn during our interview today. Her history is obtained from her son and [id number]. She denies any pain at current. Her renal failure is improving with supportive measures. Serum protein electrophoresis and urine protein electrophoresis have been obtained. I have added serum free light chain assessment. We will also obtain a CT of the chest, abdomen and pelvis without IV contrast and bone scan to complete evaluation. Differential diagnosis includes multiple myeloma, recurrent lobular carcinoma as well as therapy related MDS. These options were discussed with the patient and family today. Possible treatment options were proposed given these scenarios. Further decisions pending evaluation. Inpatient Charges Provider: Dr. Ayden Albrecht Consult - Inpatient Medicare Only: [id number]
[2018-04-20] MEDS ORDERED: Melatonin 3 MG TABLET PO PRN (21:34)
[2018-04-21] MEDS: 0.9 % Sodium Chloride 1,000 ML IVC SCH (01:01)
[2018-04-21] MEDS: Ipratropium/Albuterol Neb 3 ML IH SCH ×4 (04:21→22:20)
[2018-04-21] MEDS: *HR* Heparin 5,000 UNIT/ML VIAL SQ SCH ×2 (05:15→17:25)
--- NOTE | 2018-04-21 07:41 | Internal Med Progress Note ---
<[place] - Last Filed: 04/21/18 13:10> Hospitalist Progress Note - Encounter Date of Encounter: 04/21/18 Time of Encounter: 09:00 - Subjective Interval History: Ms. Kim is a 77F with PMH of HTN, STEMI, and COPD, who originally presented to the ED on 04/17 after abnormal lab results were reported by her PCP. She had a fall at home several weeks before and a lumbar and pelvic xray were obtained. A lytic lesion was noted on the left femoral intertrochanteric region. Labs from the PCP revealed macrocytic anemia and hyponatremia. It was discovered that the pt had also been experiencing lethargy and weight loss. Head CT from the ED was normal. Retroperitoneal ultrasound was suggestive of underlying chronic renal disease. Elevated protein in the urine was also noted and SPEP and UPEP were obtained, awaiting results. 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 A nodular opacity in the left lower lobe was also identified. Concern for multiple myeloma vs metastatic breast vs lung ca. Pt seen and examined at bedside today. She is seated upright at the bedside, appears to be in brighter spirits than yesterday. No acute events overnight. Pt has no new or acute complaints. Denies any fever, chills, chest pain, shortness of breath, abdominal pain, nausea, vomiting, urinary pain or difficulties, headache, numbness, or tingling. - Exam Vitals: Temp Pulse Resp BP Pulse Ox 97.6 F 95 17 105/68 98 04/21/18 07:07 04/21/18 07:07 04/21/18 07:07 04/21/18 07:07 04/21/18 07:07 Exam: Constitutional: cachectic female. no acute distress. pleasant. Head: Normocephalic, atraumatic Eyes: PERRL, EOMI, conjunctiva pink, sclera anicteric Neck: Supple, trachea midline, no lymphadenopathy Lungs: Clear to auscultation bilaterally. Nonlabored breathing. No wheezes, rales, or rhonchi noted. Cardiac: RRR. No murmurs, clicks, or rubs noted. GI: Abdomen soft, nontender, mildly distended. Normoactive bowel sounds Extremities: Warm, radial pulses palpable and symmetrical. No cyanosis, pedal edema, or calf tenderness. Neuro: Alert and oriented 3. No focal deficits. Normal speech. Skin: Warm, dry, and intact. - Assessment and Plan (1) Lytic bone lesion of femur Current Visit: Yes Status: Acute Assessment and Plan: Lytic lesion of the left femoral intertrochanteric xray was originally obtained after a fall several weeks ago pt admits to fatigue and weight loss Bone survey on 04/17 showed small lucent lesion in proximal left femur Pt has hx of lobular carcinoma of the right breast is 2001, and lobular carcinoma of the left breast in 2008. Pt also has hx of smoking. Heme/onc following CT abdomen/pelvis revealed further osseous metastatic disease in the ilium, ischia, and L1. There is also a nodular opacity in the Left lower lobe of the lung. Nuclear med bone scan was concerning for multifocal activity in the lower extremities. Awaiting UPEP and SPEP, concerned for multiple myeloma with elevated protein in urine Concerned for multiple myeloma vs metastatic breast vs metastatic lung ca (2) Renal failure Current Visit: Yes Status: Acute Assessment and Plan: New onset renal failure with creatinine 5.6, improved at 1.77 today - renal ultrasound revealed echogenicity of renal cortex in upper limits of normal, along with relatively hypoechoic renal medullary pyramids, consistent with chronic renal disease - No urine eosinophils - Urine sodium normal at 88.6 - Total urine protein elevated, but albumin normal, likely increased globulins related to multiple myeloma Kidney functions improving well Nephrology on board (3) Malnourished Current Visit: Yes Status: Acute Assessment and Plan: Pt aappears ill and cachectic Appreciate nutrition consult Ensure with meals TID (4) Hypotension Current Visit: Yes Status: Acute Assessment and Plan: Improved at 105/68 this am Continue to hold home metoprolol, losartan, and HCTZ (5) Tobacco use Current Visit: No Status: Chronic Assessment and Plan: hx of smoking Continue Nicotine patch (6) Anemia Current Visit: Yes Status: Acute Assessment and Plan: Likely chronic related to underlying CKD Hb had dropped to 6.4 on 04/18 Transfused 1 unit pRBCs on 04/18 H&H stable today at 8.0 and 25.4 respectively DVT Prophylaxis: SQ heparin - Summary of Assessment and Plan Summary of Assessment and Plan: Will speak with heme/onc regarding whether continued workup may be done outpt Begin planning for discharge since pt will need ECF - Time Spent with Patient Total time spent is greater than 50% in coordination of care (as documented) at patient's floor/unit and/or counseling patient: Internal Medicine: Result - Labs CBC & Chem 7: 04/21/18 07:54 04/21/18 07:54 - Impressions Impressions Abdomen/Pelvis CT 04/20/18 21:00 IMPRESSION: 1. Osseous metastatic disease to the iliac bones, ischia, and the L1 vertebral body. 2. Limited evaluation for solid organ metastases; no definite lesions are seen. 3. A nodular opacity in the left lower lobe with associated atelectasis is present. Attention at follow-up is advised. D/ /20/2018 22:44:16 Axel nuñez Interpreting Provider: Axel Harvey Chest CT 04/20/18 21:00 IMPRESSION: 1. Osseous metastatic disease to the iliac bones, ischia, and the L1 vertebral body. 2. Limited evaluation for solid organ metastases; no definite lesions are seen. 3. A nodular opacity in the left lower lobe with associated atelectasis is present. Attention at follow-up is advised. D/ /20/2018 22:44:16 Axel nuñez Interpreting Provider: Axel Harvey - Diagnostic Studies CT scan - abdomen Status: image reviewed by me CT scan - pelvis Status: image reviewed by me Consult Discharge Plan - Plan Referrals: Coral Grossman, TOLL LINE INSPECTOR [Primary Care Provider] - <Raj Oliver - Last Filed: 04/21/18 17:54> Hospitalist Progress Note - Encounter Date of Encounter: 04/21/18 - Exam Vitals: Temp Pulse Resp BP Pulse Ox 98.2 F 111 20 113/74 100 04/21/18 15:31 04/21/18 15:31 04/21/18 16:42 04/21/18 15:31 04/21/18 16:42 - Assessment and Plan (1) Tobacco use Current Visit: No Status: Chronic (2) Renal failure Current Visit: Yes Status: Acute (3) Lytic bone lesion of femur Current Visit: Yes Status: Acute (4) Malnourished Current Visit: Yes Status: Acute (5) Hypotension Current Visit: Yes Status: Acute (6) Anemia Current Visit: Yes Status: Acute - Time Spent with Patient Total time spent is greater than 50% in coordination of care (as documented) at patient's floor/unit and/or counseling patient: Internal Medicine: Result - Labs CBC & Chem 7: 04/21/18 07:54 04/21/18 07:54 Labs: Short CBC 04/21/18 Range/Units 07:54 WBC 4.3 (4.3-11.1) K/mcL Hgb 8.0 L (11.5-15.4) g/dL Hct 25.4 L (35.3-44.9) % Plt Count 102 L (140-400) K/mcL Neutrophils # 2.9 (1.6-8.9) K/mcL BMP 04/21/18 07:54 Sodium 140 Potassium 5.3 H Chloride 115 H Carbon Dioxide 21 L BUN 31 H Creatinine 1.77 H Glucose 88 Calcium 8.9 - Impressions Impressions Bone Scan Nuclear Medicine 04/20/18 18:25 IMPRESSION: Healing compression fracture of L1 vertebral body, with appearance of pathologic fracture on recent CT. The majority of lytic pelvic metastases seen on CT and recent radiograph are not well demonstrated scintigraphically. Multifocal activity within the lower extremities, for which metastatic disease should be considered given the lytic pattern elsewhere on recent imaging. D/ / Shivam Kay MD / Shivam Kay MD Interpreting Provider: Shivam Kay MD Abdomen/Pelvis CT 04/20/18 21:00 IMPRESSION: 1. Osseous metastatic disease to the iliac bones, ischia, and the L1 vertebral body. 2. Limited evaluation for solid organ metastases; no definite lesions are seen. 3. A nodular opacity in the left lower lobe with associated atelectasis is present. Attention at follow-up is advised. D/ /20/2018 22:44:16 Axel Harvey / joaquin Interpreting Provider: Axel Harvey Chest CT 04/20/18 21:00 IMPRESSION: 1. Osseous metastatic disease to the iliac bones, ischia, and the L1 vertebral body. 2. Limited evaluation for solid organ metastases; no definite lesions are seen. 3. A nodular opacity in the left lower lobe with associated atelectasis is present. Attention at follow-up is advised. D/ / 04/20/2018 22:44:16 Axel Harvey / joaquin Interpreting Provider: Axel Harvey - Attending Attestation I examined this patient and my medical decision-making was reviewed with the Resident Physician Dr. Barry. I agree with the documented findings, disposition and treatment plan as described except to the extent set forth below. Ms. Kim is a 77F with PMH of HTN, STEMI, and COPD, who originally presented to the ED on 04/17 after abnormal lab results were reported by her PCP. She had a fall at home several weeks before and a lumbar and pelvic xray were obtained which showed lytic lesion on the left femoral intertrochanteric region. She happened to have LAUREN too which improved with IV hdyration. Her song CT of Abd/Pelvis/Chest showed multiple lytic lesion over Ileus, Ischia and L1. Heme Onc consulted, appreciate their recommendations. Possible d/c to ECF in AM depending on Heme Onc plan. Pt stated she is feeling better, denied any pain any where. Gen: A, A< O x 3 Chest: Diminished BS b/l, No crackles, no rales <[place] - Last Filed: 04/21/18 13:10> (2) Renal failure Qualifiers: Renal failure chronicity: unspecified chronicity Qualified Code(s): N19 - Unspecified kidney failure (3) Malnourished Qualifiers: Malnutrition type: unspecified type Qualified Code(s): E46 - Unspecified protein-calorie malnutrition (4) Hypotension Qualifiers: Hypotension type: unspecified hypotension type Qualified Code(s): I95.9 - Hypotension, unspecified (6) Anemia Qualifiers: Anemia type: unspecified type Qualified Code(s): D64.9 - Anemia, unspecified <Thallapaneni,Rambabu - Last Filed: 04/21/18 17:54> (2) Renal failure Qualifiers: Qualified Code(s): N19 - Unspecified kidney failure (4) Malnourished Qualifiers: Qualified Code(s): E46 - Unspecified protein-calorie malnutrition (5) Hypotension Qualifiers: Qualified Code(s): I95.9 - Hypotension, unspecified (6) Anemia Qualifiers: Qualified Code(s): D64.9 - Anemia, unspecified
[2018-04-21 08:40] LABS: Calcium 8.9 mg/dL (8.6-10.3); Potassium 5.3 mEq/L (3.5-5.1)
[2018-04-21 08:45] LABS: Mean Platelet Volume 10.5 fL (9.4-12.4); Red Blood Count 2.44 M/mcL (3.82-4.97)
[2018-04-21 08:50] LABS: Basophils % 0.2 %; Eosinophils % 0.9 %; Hematocrit 25.4 % (35.3-44.9); Immature Granulocytes % 1.2 % (0-4); Immature Platelets 4.8 % (1.1-6.1); Lymphocytes # 0.8 K/mcL (0.6-4.6); Lymphocytes % 18.5 %; Mean Corpuscular HGB Conc 31.5 g/dL (31.6-35.5); Mean Corpuscular Hemoglobin 32.8 pg (28.0-33.3); Mean Corpuscular Volume 104.1 fL (83.0-100.0); Monocytes # 0.5 K/mcL (0.0-1.3); Monocytes % 12.5 %; Neutrophils # 2.9 K/mcL (1.6-8.9); Nucleated Red Blood Cells 1.2 /100 WBC (0); Platelet Count 102 K/mcL (140-400); Red Cell Distribution Width 22.2 % (11.5-14.5); Segmented Neutrophils % 66.7 %
[2018-04-21] MEDS: Nicotine 21 MG PATCH.TD24 TD SCH (09:21)
[2018-04-21] MEDS: Aspirin Enteric Coated 81 MG Tablet PO SCH (09:21)
--- NOTE | 2018-04-21 09:50 | Electrocardiograph Report ---
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
--- NOTE | 2018-04-21 14:45 | Oncology Inp Progress Note ---
<Zeinab Sanz L - Last Filed: 04/21/18 17:42> Date of Encounter: 04/21/18 Time of Encounter: 13:30 (1) Lytic bone lesion of femur Current Visit: Yes Status: Acute Assessment and plan: CT chest/abdomen/pelvis with oral contrast only-reveals osseous metastatic disease to iliac bones, ischia and L vertebral body with associated compression fracture, limited evaluation for solid organ metastasis but no identifiable lesions are noted, nodular opacity within the left lower lobe, anasarca, moderate ascites and left pleural effsuion with associated airspace disease. Her NM bone scan reveals focal activity to the L1 lytic lesion, multifocal activity in the lower extremities and not well demonstration of activity in the majority of the pelvic lesions, this is most consistent with multiple myeloma. Suspect clinical picture is likely secondary to malignant process such as multiple myeloma. Metastatic recurrent breast cancer remains within differential , although less likely. 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 CRAB- Calcium normal, acute renal failure-improving since admission, reviewed nephrology's note, macrocytic anemia present (nutritional stores replete), bone lesion as described above/in bone survey SPEP, UPEP, Serum free light chains-pending LDH 219 Will pursue biopsy pelvis bone lesion tomorrow and send for flow, cytogenetics and FISH Oncology would prefer patients discharge be held until we have a clear diagnosis. If dx of multiple myeloma is confirmed, would likely initiate inpatient treatment (Bortezomib SQ and oral Dexamethasone). Further recommendations pending workup as above. Plan discussed with patient and family in detail who understand the above and wish to continue to pursue further workup with the intent to explore treatment options (2) Anemia Current Visit: Yes Status: Acute Assessment and plan: Acute, macrocytic anemia (MCV 104 on admission), s/p 1 unit PRBC Iron, folate, B12 are replete Stool guaiac-pending Stable at this time. Given concomitant thrombocytopenia, MDS (potentially treatment related) remains within differential, although less likely given overall presentation Continue to monitor, transfuse as needed Qualifiers: Qualified Code(s): D64.9 - Anemia, unspecified (3) LAUREN (acute kidney injury) Current Visit: Yes Status: Acute Assessment and plan: Improving per nephrology's recommendations with supportive measures, Creatinine 1.7 today (4.3 on admission), GFR 28 (4) Insomnia Current Visit: Yes Status: Acute Assessment and plan: Multifactorial, likely secondary to recent diagnosis and hospital environment. To aid with this will order ambien 5 mg PRN, risks and benefits discussed. Will also start scheduled remeron to assist with insomnia, appetite and mood. Qualifiers: Qualified Code(s): G47.00 - Insomnia, unspecified Oncology: Subj Interval history: Ms. Young is resting in her chair. She again is somewhat withdrawn and not very conversational today. Her son is at bedside. She denies pain or other physical complaint and states she is overall feeling well. - Constitutional Vitals: Vital Signs Temp Pulse Resp BP Pulse Ox 04/21/18 12:17 97.6 F 102 16 110/71 96 04/21/18 11:01 20 96 04/21/18 07:07 97.6 F 95 17 105/68 98 04/21/18 04:33 97.7 F 95 16 122/65 100 04/21/18 04:12 18 99 04/20/18 23:32 97.3 F L 103 16 130/82 100 04/20/18 19:29 97.6 F 92 15 127/77 95 04/20/18 15:43 98.4 F 91 16 111/68 97 Intake and Output 04/20/18 04/21/18 04/21/18 23:59 07:59 15:59 Intake Total 0 / 0 Output Total 1100 / 1100 Balance -1100 / -1100 Intake: IV Fluids 0 / 0 0.9 % Sodium Chloride 1,000 ML 0 / 0 @ 100 mls/hr IVC .Q10H SAMMY Rx#: [id number] Output: Urine 1100 / 1100 Other: Stool Size Small Stool Consistency soft Stool Characteristics Normal for Patient Stool Color Brown # Voids 4 # Bowel Movements 2 Weight 48.6 kg General appearance: cooperative, no acute distress, no febrile - Head Head exam: Present: atraumatic - ENT ENT exam: Present: mucous membranes moist - Respiratory Respiratory exam: Present: CTAB. Absent: respiratory distress - Cardiovascular Cardiovascular exam: Present: RRR, +S1, +S2 - GI/Abdominal GI/Abdominal exam: Present: normal bowel sounds, soft. Absent: tenderness Additional comments: mildly distended - Extremities Exam Extremities exam: Present: normal inspection. Absent: calf tenderness - Neurological Exam Neurological exam: Present: alert, oriented X3, no focal deficits, strengths equal and symetr throughout - Psychiatric Psychiatric exam: Present: flat affect - Skin Skin exam: Present: dry, intact, normal color, warm Oncology: Obj Data - Labs CBC & Chem 7: 04/21/18 07:54 04/21/18 07:54 Labs: Laboratory Results - last 24 hr 04/21/18 04/21/18 07:54 07:54 WBC 4.3 RBC 2.44 L Hgb 8.0 L Hct 25.4 L MCV 104.1 H MCH 32.8 MCHC 31.5 L RDW 22.2 H Plt Count 102 L MPV 10.5 Immature Gran % 1.2 Seg Neutrophils % 66.7 Lymphocytes % 18.5 Monocytes % 12.5 Eosinophils % 0.9 Basophils % 0.2 Neutrophils # 2.9 Lymphocytes # 0.8 Monocytes # 0.5 Eosinophils # 0.0 Basophils # 0.0 Nucleated RBCs/100 WBC 1.2 H Immature Plt Fraction 4.8 Sodium 140 Potassium 5.3 H Chloride 115 H Carbon Dioxide 21 L BUN 31 H Creatinine 1.77 H Est GFR ( Amer) 34 L Est GFR (Non-Af Amer) 28 L BUN/Creatinine Ratio 18 Glucose 88 Calculated Osmolality 296 Calcium 8.9 - Impressions Impressions Bone Scan Nuclear Medicine 04/20/18 18:25 IMPRESSION: Healing compression fracture of L1 vertebral body, with appearance of pathologic fracture on recent CT. The majority of lytic pelvic metastases seen on CT and recent radiograph are not well demonstrated scintigraphically. Multifocal activity within the lower extremities, for which metastatic disease should be considered given the lytic pattern elsewhere on recent imaging. D/ / Shivam Kay MD / Shivam Kay MD Interpreting Provider: Shivam Kay MD Abdomen/Pelvis CT 04/20/18 21:00 IMPRESSION: 1. Osseous metastatic disease to the iliac bones, ischia, and the L1 vertebral body. 2. Limited evaluation for solid organ metastases; no definite lesions are seen. 3. A nodular opacity in the left lower lobe with associated atelectasis is present. Attention at follow-up is advised. D/ /20/2018 22:44:16 Axel nuñez Interpreting Provider: Axel Harvey Chest CT 04/20/18 21:00 IMPRESSION: 1. Osseous metastatic disease to the iliac bones, ischia, and the L1 vertebral body. 2. Limited evaluation for solid organ metastases; no definite lesions are seen. 3. A nodular opacity in the left lower lobe with associated atelectasis is present. Attention at follow-up is advised. D/ : / 04/20/2018 22:44:16 Axel nuñez Interpreting Provider: Axel Harvey Consult Discharge Plan - Plan Referrals: Coral Grossman, CONDUIT HELPER [Primary Care Provider] - <Arun Albrecht - Last Filed: 04/22/18 08:23> Date of Encounter: 04/22/18 - Constitutional Vitals: Vital Signs Temp Pulse Resp BP Pulse Ox 04/22/18 06:37 98.6 F 102 16 127/68 100 04/22/18 03:37 98.1 F 113 16 106/64 100 04/21/18 23:24 98.7 F 113 16 117/79 96 04/21/18 20:19 98.3 F 108 16 105/63 97 04/21/18 16:42 20 100 04/21/18 15:31 98.2 F 111 15 113/74 98 04/21/18 12:17 97.6 F 102 16 110/71 96 04/21/18 11:01 20 96 Intake and Output 04/21/18 04/22/18 04/22/18 16:59 00:59 08:59 Other: Meal Dinner Percent of Meal Consumed 30% Weight 49.4 kg Oncology: Obj Data - Labs CBC & Chem 7: 04/22/18 04:00 04/22/18 04:00 Labs: Laboratory Results - last 24 hr 04/21/18 04/21/18 04/22/18 07:54 07:54 04:00 WBC 4.3 3.8 L RBC 2.44 L 2.33 L Hgb 8.0 L 7.6 L Hct 25.4 L 24.7 L MCV 104.1 H 106.0 H MCH 32.8 32.6 MCHC 31.5 L 30.8 L RDW 22.2 H 21.5 H Plt Count 102 L 93 L MPV 10.5 10.4 Immature Gran % 1.2 1.1 Seg Neutrophils % 66.7 64.6 Lymphocytes % 18.5 21.3 Monocytes % 12.5 11.7 Eosinophils % 0.9 1.3 Basophils % 0.2 0.0 Neutrophils # 2.9 2.5 Lymphocytes # 0.8 0.8 Monocytes # 0.5 0.4 Eosinophils # 0.0 0.1 Basophils # 0.0 0.0 Nucleated RBCs/100 WBC 1.2 H 0.5 H Immature Plt Fraction 4.8 4.6 Sodium 140 Potassium 5.3 H Chloride 115 H Carbon Dioxide 21 L BUN 31 H Creatinine 1.77 H Est GFR ( Amer) 34 L Est GFR (Non-Af Amer) 28 L BUN/Creatinine Ratio 18 Glucose 88 Calculated Osmolality 296 Calcium 8.9 04/22/18 04:00 WBC RBC Hgb Hct MCV MCH MCHC RDW Plt Count MPV Immature Gran % Seg Neutrophils % Lymphocytes % Monocytes % Eosinophils % Basophils % Neutrophils # Lymphocytes # Monocytes # Eosinophils # Basophils # Nucleated RBCs/100 WBC Immature Plt Fraction Sodium 140 Potassium 5.4 H Chloride 115 H Carbon Dioxide 24 BUN 28 H Creatinine 1.69 H Est GFR ( Amer) 35 L Est GFR (Non-Af Amer) 29 L BUN/Creatinine Ratio 17 Glucose 91 Calculated Osmolality 295 Calcium 8.7 - Impressions Impressions Bone Scan Nuclear Medicine 04/20/18 18:25 IMPRESSION: Healing compression fracture of L1 vertebral body, with appearance of pathologic fracture on recent CT. The majority of lytic pelvic metastases seen on CT and recent radiograph are not well demonstrated scintigraphically. Multifocal activity within the lower extremities, for which metastatic disease should be considered given the lytic pattern elsewhere on recent imaging. D/ / Shivam Kay MD / Shivam Kay MD Interpreting Provider: Shivam Kay MD Inpatient Charges Provider: Dr. Ayden Albrecht Follow up - Inpatient: [id number] - Attending Attestation I examined this patient and my medical decision-making was reviewed with the Advanced Practice Nurse. I agree with the documented findings, disposition and treatment plan as described except to the extent set forth below. She feels well today. She remains very withdrawn and does not interact much during our conversation. I did review her CT and bone scan results. She has more lytic lesions involving the pelvis. To expedite her care, I recommended CT-guided bone biopsy of a pelvic lytic bone lesion. This will be sent for fish, flow and cytogenetics if myeloma is found. Otherwise, will be utilized as a diagnostic test if this is a solid tumor. We again revisited potential therapies moving forward focusing on treatment for multiple myeloma and breast cancer. The patient does wish to pursue treatment. If the patient does have multiple myeloma, I will like to administer a single dose of Velcade and Decadron prior to discharge. I am hopeful we will have results available tomorrow or possibly . She will be discharged to a rehabilitation facility for short-term rehabilitation per my understanding.
--- NOTE | 2018-04-21 18:15 | Nephrology Progress Note ---
Date of Encounter: 04/21/18 Time of Encounter: 12:00 - Assessment and Plan (1) LAUREN (acute kidney injury) Current Visit: Yes Status: Acute SCr improving still at 1.77, GFR 28, continue ivf UOP not documented yesterday but 1100cc today so far Continue to avoid nephrotoxins if possible (2) Lytic bone lesion of femur Current Visit: Yes Status: Acute Oncology now on board. awaiting SPEP and UPEP as well as CT scans (3) Anemia Current Visit: Yes Status: Acute Hgb noted at 8.0, will monitor Qualifiers: Anemia type: unspecified type Qualified Code(s): D64.9 - Anemia, unspecified (4) Hyponatremia Current Visit: Yes Status: Acute Subjective Interval history: Pt seen and examined with family at bedside feeling better overall and eager to go home. Objective - Vital Signs Vital signs: Vital Signs Temp Pulse Resp BP Pulse Ox 04/21/18 16:42 20 100 04/21/18 15:31 98.2 F 111 15 113/74 98 04/21/18 12:17 97.6 F 102 16 110/71 96 04/21/18 11:01 20 96 04/21/18 07:07 97.6 F 95 17 105/68 98 04/21/18 04:33 97.7 F 95 16 122/65 100 04/21/18 04:12 18 99 04/20/18 23:32 97.3 F L 103 16 130/82 100 04/20/18 19:29 97.6 F 92 15 127/77 95 Intake and Output 04/21/18 04/21/18 04/21/18 07:59 15:59 23:59 Intake Total 0 / 0 Output Total 1100 / 1100 Balance -1100 / -1100 Intake: IV Fluids 0 / 0 0.9 % Sodium Chloride 1,000 ML 0 / 0 @ 100 mls/hr IVC .Q10H SAMMY Rx#: [id number] Output: Urine 1100 / 1100 Other: Meal Dinner Percent of Meal Consumed 30% Stool Size Small Stool Consistency soft Stool Characteristics Normal for Patient Stool Color Brown # Voids 4 # Bowel Movements 2 - Lab 04/21/18 07:54 04/21/18 07:54 Most recent lab results Calcium 8.9 mg/dL (8.6-10.3) 04/21/18 07:54 Phosphorus 5.6 mg/dL (2.7-4.5) H 04/17/18 12:20 Magnesium 3.2 mg/dL (1.6-2.6) H 04/17/18 12:20 Urine Creatinine 97 mg/dL 04/18/18 13:57 Urine Sodium 88.6 mEq/L 04/18/18 13:57 Urine Total Protein 97 mg/dL (1-14) H 04/18/18 04:31 Consult Discharge Plan - Plan Referrals: Coral Grossman, PRODUCTION TEAM MEMBER [Primary Care Provider] -
[2018-04-21] MEDS: Mirtazapine 15 MG TABLET PO SCH (21:31)
[2018-04-21 22:14] LABS: Urine Collection Duration RANDOM hr; Urine Collection Volume RANDOM mL
[2018-04-21] MEDS ORDERED: Ipratropium/Albuterol Neb 3 ML IH PRN (23:10)
[2018-04-22 02:56] LABS: Alpha 2 Globulin (PEP) 1.06 g/dL (0.48-1.05); Beta Globulin (PEP) 0.74 g/dL (0.48-1.10)
[2018-04-22] MEDS: *HR* Heparin 5,000 UNIT/ML VIAL SQ SCH ×2 (04:27→16:25)
[2018-04-22 04:53] LABS: Hematocrit 24.7 % (35.3-44.9); Hemoglobin 7.6 g/dL (11.5-15.4); Mean Corpuscular HGB Conc 30.8 g/dL (31.6-35.5); Nucleated Red Blood Cells 0.5 /100 WBC (0)
[2018-04-22 04:55] LABS: Eosinophils # 0.1 K/mcL (0.0-0.6); Eosinophils % 1.3 %; Immature Granulocytes % 1.1 % (0-4); Immature Platelets 4.6 % (1.1-6.1); Lymphocytes # 0.8 K/mcL (0.6-4.6); Lymphocytes % 21.3 %; Mean Corpuscular Hemoglobin 32.6 pg (28.0-33.3); Mean Platelet Volume 10.4 fL (9.4-12.4); Monocytes # 0.4 K/mcL (0.0-1.3); Monocytes % 11.7 %; Red Blood Count 2.33 M/mcL (3.82-4.97); Red Cell Distribution Width 21.5 % (11.5-14.5); Segmented Neutrophils % 64.6 %
[2018-04-22 05:09] LABS: Calcium 8.7 mg/dL (8.6-10.3); Potassium 5.4 mEq/L (3.5-5.1)
[2018-04-22 05:14] LABS: Neutrophils # 2.5 K/mcL (1.6-8.9); Platelet Count 93 K/mcL (140-400)
[2018-04-22] MEDS: Nicotine 21 MG PATCH.TD24 TD SCH (08:25)
[2018-04-22] MEDS: Aspirin Enteric Coated 81 MG Tablet PO SCH (08:25)
--- NOTE | 2018-04-22 08:53 | Internal Med Progress Note ---
<[place] - Last Filed: 04/22/18 11:48> Hospitalist Progress Note - Encounter Date of Encounter: 04/22/18 Time of Encounter: 09:42 - Subjective Interval History: Ms. Kim is a 77F with PMH of HTN, STEMI, and COPD, who originally presented to the ED on 04/17 after abnormal lab results were reported by her PCP. She had a fall at home several weeks before and a lumbar and pelvic xray were obtained. A lytic lesion was noted on the left femoral intertrochanteric region. Labs from the PCP revealed macrocytic anemia and hyponatremia. It was discovered that the pt had also been experiencing lethargy and weight loss. Head CT from the ED was normal. Retroperitoneal ultrasound was suggestive of underlying chronic renal disease. Elevated protein in the urine was also noted and SPEP and UPEP were obtained, awaiting results. 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 A nodular opacity in the left lower lobe was also identified. Concern for multiple myeloma vs metastatic breast vs lung ca vs unknown primary. Pt seen and examined at bedside today. She is resting comfortably in bed. No acute events overnight. Pt has no new or acute complaints. Waiting to go for biopsy of lytic lesion in left femur. Denies any fever, chills, chest pain, shortness of breath, abdominal pain, nausea, vomiting, urinary pain or difficulties, headache, numbness, or tingling. - Exam Vitals: Temp Pulse Resp BP Pulse Ox 98.6 F 102 16 127/68 100 04/22/18 06:37 04/22/18 06:37 04/22/18 06:37 04/22/18 06:37 04/22/18 06:37 Exam: Constitutional: cachectic female. no acute distress. pleasant. Head: Normocephalic, atraumatic Eyes: PERRL, EOMI, conjunctiva pink, sclera anicteric Neck: Supple, trachea midline, no lymphadenopathy Lungs: Clear to auscultation bilaterally. Nonlabored breathing. No wheezes, rales, or rhonchi noted. Cardiac: RRR. No murmurs, clicks, or rubs noted. GI: Abdomen soft, nontender, mildly distended. Normoactive bowel sounds Extremities: Warm, radial pulses palpable and symmetrical. No cyanosis, pedal edema, or calf tenderness. Neuro: Alert and oriented 3. No focal deficits. Normal speech. Skin: Warm, dry, and intact. - Assessment and Plan (1) Lytic bone lesion of femur Current Visit: Yes Status: Acute Assessment and Plan: Lytic lesion of the left femoral intertrochanteric xray was originally obtained after a fall several weeks ago pt admits to fatigue and weight loss Bone survey on 04/17 showed small lucent lesion in proximal left femur Pt has hx of lobular carcinoma of the right breast is 2001, and lobular carcinoma of the left breast in 2008. Pt also has hx of smoking. CT abdomen/pelvis revealed further osseous metastatic disease in the ilium, ischia, and L1. There is also a nodular opacity in the Left lower lobe of the lung. Nuclear med bone scan was concerning for multifocal activity in the lower extremities. Heme/onc following Awaiting UPEP and SPEP, concerned for multiple myeloma with elevated protein in urine Concerned for multiple myeloma vs metastatic breast vs metastatic lung ca vs unknown primary Getting bone biopsy today (2) Malnourished Current Visit: Yes Status: Acute Assessment and Plan: Pt aappears ill and cachectic Appreciate nutrition consult Ensure with meals TID (3) Hypotension Current Visit: Yes Status: Resolved Assessment and Plan: Improved at 127/68 this am Continue to hold home metoprolol, losartan, and HCTZ (4) Anemia Current Visit: Yes Status: Acute Assessment and Plan: Likely chronic related to underlying CKD Hb had dropped to 6.4 on 04/18 Transfused 1 unit pRBCs on 04/18 H&H stable today at 7.6 and 24.7 respectively (5) Renal failure Current Visit: Yes Status: Resolved Assessment and Plan: New onset renal failure with creatinine 5.6, improved at 1.69 today - renal ultrasound revealed echogenicity of renal cortex in upper limits of normal, along with relatively hypoechoic renal medullary pyramids, consistent with chronic renal disease - No urine eosinophils - Urine sodium normal at 88.6 - Total urine protein elevated, but albumin normal, likely increased globulins related to multiple myeloma Kidney functions improving well Nephrology on board (6) Tobacco use Current Visit: No Status: Chronic Assessment and Plan: hx of smoking Continue Nicotine patch (7) Hyperkalemia Current Visit: Yes Status: Acute Assessment and Plan: Potassium elevated at 5.4 today Will give 1L of half normal saline @75mL/hr Repeat chem at 18:00 DVT Prophylaxis: SQ heparin - Time Spent with Patient Total time spent is greater than 50% in coordination of care (as documented) at patient's floor/unit and/or counseling patient: Internal Medicine: Result - Labs CBC & Chem 7: 04/22/18 04:00 04/22/18 04:00 Labs: Short CBC 04/22/18 Range/Units 04:00 WBC 3.8 L (4.3-11.1) K/mcL Hgb 7.6 L (11.5-15.4) g/dL Hct 24.7 L (35.3-44.9) % Plt Count 93 L (140-400) K/mcL Neutrophils # 2.5 (1.6-8.9) K/mcL BMP 04/22/18 04:00 Sodium 140 Potassium 5.4 H Chloride 115 H Carbon Dioxide 24 BUN 28 H Creatinine 1.69 H Glucose 91 Calcium 8.7 - Impressions Impressions Bone Scan Nuclear Medicine 04/20/18 18:25 IMPRESSION: Healing compression fracture of L1 vertebral body, with appearance of pathologic fracture on recent CT. The majority of lytic pelvic metastases seen on CT and recent radiograph are not well demonstrated scintigraphically. Multifocal activity within the lower extremities, for which metastatic disease should be considered given the lytic pattern elsewhere on recent imaging. D/ / Shivam Kay MD / Shivam Kay MD Interpreting Provider: Shivam Kay MD Consult Discharge Plan - Plan Referrals: Coral Grossman, QUEBRACHO TANNER [Primary Care Provider] - (Ana is going to [facility]) <Raj Oliver - Last Filed: 04/22/18 16:26> Hospitalist Progress Note - Encounter Date of Encounter: 04/22/18 - Exam Vitals: Temp Pulse Resp BP Pulse Ox 98.8 F 98 33 110/60 100 04/22/18 11:11 04/22/18 14:00 04/22/18 14:00 04/22/18 14:00 04/22/18 14:00 - Assessment and Plan (1) Tobacco use Current Visit: No Status: Chronic (2) Renal failure Current Visit: Yes Status: Resolved (3) Lytic bone lesion of femur Current Visit: Yes Status: Acute (4) Malnourished Current Visit: Yes Status: Acute (5) Hypotension Current Visit: Yes Status: Resolved (6) Anemia Current Visit: Yes Status: Acute (7) Hyperkalemia Current Visit: Yes Status: Acute - Time Spent with Patient Total time spent is greater than 50% in coordination of care (as documented) at patient's floor/unit and/or counseling patient: Internal Medicine: Result - Labs CBC & Chem 7: 04/22/18 04:00 04/22/18 04:00 Labs: Short CBC 04/22/18 Range/Units 04:00 WBC 3.8 L (4.3-11.1) K/mcL Hgb 7.6 L (11.5-15.4) g/dL Hct 24.7 L (35.3-44.9) % Plt Count 93 L (140-400) K/mcL Neutrophils # 2.5 (1.6-8.9) K/mcL BMP 04/22/18 04:00 Sodium 140 Potassium 5.4 H Chloride 115 H Carbon Dioxide 24 BUN 28 H Creatinine 1.69 H Glucose 91 Calcium 8.7 - ABG Interpretation ABG results: PT/INR, D-dimer PT 12.7 Seconds (9.4-12.1) H 04/22/18 12:15 - Impressions Impressions Bone Biopsy CT 04/22/18 00:00 IMPRESSION: Successful CT guided core biopsy of left sacral lucent bone lesion.. D/ / Tito Gibbons / Tito Gibbons Interpreting Provider: Tito Gibbons - Attending Attestation I examined this patient and my medical decision-making was reviewed with the Resident Physician Dr. Barry. I agree with the documented findings, disposition and treatment plan as described except to the extent set forth below. Ms. Kim is a 77F with PMH of HTN, STEMI, and COPD, who originally presented to the ED on 04/17 after abnormal lab results were reported by her PCP. She had a fall at home several weeks before and a lumbar and pelvic xray were obtained which showed lytic lesion on the left femoral intertrochanteric region. She happened to have LAUREN too which improved with IV hdyration. Her song CT of Abd/Pelvis/Chest showed multiple lytic lesion over Ileus, Ischia and L1. Heme Onc consulted, appreciate their recommendations. Had bone marrow biopsy today. UPEP came back as negative for multiple myeloma.. Will f/u on bone marrow biopsy results . Pt stated she is feeling better, denied any pain any where. Gen: A, A< O x 3 Chest: Diminished BS b/l, No crackles, no rales <[place] - Last Filed: 04/22/18 11:48> (2) Malnourished Qualifiers: Malnutrition type: unspecified type Qualified Code(s): E46 - Unspecified protein-calorie malnutrition (3) Hypotension Qualifiers: Hypotension type: unspecified hypotension type Qualified Code(s): I95.9 - Hypotension, unspecified (4) Anemia Qualifiers: Anemia type: unspecified type Qualified Code(s): D64.9 - Anemia, unspecified (5) Renal failure Qualifiers: Renal failure chronicity: unspecified chronicity Qualified Code(s): N19 - Unspecified kidney failure <Raj Oliver - Last Filed: 04/22/18 16:26> (2) Renal failure Qualifiers: Renal failure chronicity: unspecified chronicity Qualified Code(s): N19 - Unspecified kidney failure (4) Malnourished Qualifiers: Malnutrition type: unspecified type Qualified Code(s): E46 - Unspecified protein-calorie malnutrition (5) Hypotension Qualifiers: Hypotension type: unspecified hypotension type Qualified Code(s): I95.9 - Hypotension, unspecified (6) Anemia Qualifiers: Anemia type: unspecified type Qualified Code(s): D64.9 - Anemia, unspecified
[2018-04-22 10:03] LABS: IFE Reflexed NOT DONE
[2018-04-22] MEDS ORDERED: 0.9 % Sodium Chloride 1,000 ML IVC SCH (11:45)
[2018-04-22 12:43] LABS: INR 1.1; Prothrombin Time 12.7 Seconds (9.4-12.1)
--- NOTE | 2018-04-22 12:46 | Nephrology Progress Note ---
Date of Encounter: 04/22/18 Time of Encounter: 12:00 - Assessment and Plan (1) LAUREN (acute kidney injury) Current Visit: Yes Status: Acute SCr improving still at 1.69, GFR 28, continue ivf UOP noted at 1100cc in the past 24hrs Continue to avoid nephrotoxins if possible (2) Lytic bone lesion of femur Current Visit: Yes Status: Acute Oncology now on board. awaiting SPEP and UPEP CT ad/pelvis showed osseous metastatic lesions. Nuclear bone scan also noted (3) Anemia Current Visit: Yes Status: Acute Hgb noted at 7.6, will monitor Qualifiers: Anemia type: unspecified type Qualified Code(s): D64.9 - Anemia, unspecified (4) Hyponatremia Current Visit: Yes Status: Acute Sodium noted at 140 with IVF. likely casued by HCTZ and decreased po intake Resolved (5) Hyperkalemia Current Visit: Yes Status: Acute Potassium noted at 5.4 from 5.3 yesterday. Pt was started on supplements 04/20/18 , not sure why but discontinued Subjective Interval history: Pt seen and examined with family at bedside with no complaints. Biopsy of lytic femur lesion pending today. Objective - Vital Signs Vital signs: Vital Signs Temp Pulse Resp BP Pulse Ox 04/22/18 11:11 98.8 F 98 16 107/68 98 04/22/18 06:37 98.6 F 102 16 127/68 100 04/22/18 03:37 98.1 F 113 16 106/64 100 04/21/18 23:24 98.7 F 113 16 117/79 96 04/21/18 20:19 98.3 F 108 16 105/63 97 04/21/18 16:42 20 100 04/21/18 15:31 98.2 F 111 15 113/74 98 Intake and Output 04/21/18 04/22/18 04/22/18 23:59 07:59 15:59 Output Total 250 / 250 Balance -250 / -250 Output: Urine 250 / 250 Other: Meal Dinner Percent of Meal Consumed 30% Weight 49.4 kg - General Appearance General appearance: Present: chronically ill, frail EENT: Present: ATNC, mucous membranes moist Neck: Present: no JVD, supple Respiratory: Present: clear (ant bilat) Cardiology: Present: no edema, normal S1, normal S2 Gastrointestinal: Present: no tenderness, no guarding Integumentary: Present: warm and dry Neurologic: Present: no focal deficit Musculoskeletal: Present: no deformities Psychiatric: Present: mood/affect appropriate - Lab 04/22/18 04:00 04/22/18 04:00 Most recent lab results Calcium 8.7 mg/dL (8.6-10.3) 04/22/18 04:00 Phosphorus 5.6 mg/dL (2.7-4.5) H 04/17/18 12:20 Magnesium 3.2 mg/dL (1.6-2.6) H 04/17/18 12:20 Urine Creatinine 97 mg/dL 04/18/18 13:57 Urine Sodium 88.6 mEq/L 04/18/18 13:57 Urine Total Protein 97 mg/dL (1-14) H 04/18/18 04:31 Consult Discharge Plan - Plan Referrals: Coral Grossman, SE[employer]ER [Primary Care Provider] - (Ana is going to [facility])
[2018-04-22] MEDS ORDERED: *HR* FentaNYL (PF) 100 MCG/2 ML VIAL IVP ONE (13:37)
[2018-04-22] MEDS ORDERED: *HR* Midazolam HCl 2 MG/2 ML VIAL IVP ONE (13:37)
--- NOTE | 2018-04-22 13:40 | Pre-Sedation Evaluation ---
Pre-sedation evaluation - Pre-sedation checklist Procedure: bone biopsy Recent Vitals: Last Vital Signs Temp 98.8 F 04/22/18 11:11 Pulse 98 04/22/18 11:11 Resp 16 04/22/18 11:11 BP 107/68 04/22/18 11:11 Pulse Ox 98 04/22/18 11:11 H&P (including ROS) documented in medical record: Yes Previous reaction to sedatives/anesthetics: No Dietary Status: NPO after Midnight Airway Assessment: Patient can open mouth completely, TMJ function normal Dentition: No loose teeth or bridges Possible difficult airway: No ASA Classification *see protocol: CLASS III-Severe systemic disease Plan of Care: Pt appropriate candidate for procedure/moderate/conscious sedation , Risks/benefits of procedure/sedation discussed w/ patient/family Cardiac Registry (Cardio Only) - Functional Capacity - Clincal Frailty Scale
[2018-04-22] MEDS ORDERED: *HR* FentaNYL (PF) 100 MCG/2 ML VIAL ONE (13:43)
[2018-04-22] MEDS ORDERED: *HR* Midazolam HCl 2 MG/2 ML VIAL ONE (13:43)
[2018-04-22] MEDS ORDERED: 0.9 % Sodium Chloride 500 ML ONE (13:45)
--- NOTE | 2018-04-22 14:59 | IR Procedure Note ---
Date of procedure: 04/22/18 Consent Obtained: Verbal consent, Written consent Timeout: Correct patient and procedure verified, Correct site verified, Time out performed, Skin prep completed Local anesthetic: Lidocaine 1% Indications: lucent bone lesions Procedure Performed: left sacral lesion biopsy Was there an data analysis assistant present: No Site/Technique: left sacrum Results/Findings: lucent left sacral lesion Estimated blood loss (cc): 0 Complications: None; Tolerated procedure well Post Procedure Treatment Plan: followup pathology Specimen: 18 G cores x 4, submitted in formalin and for flow cytometry.
--- NOTE | 2018-04-22 17:34 | Oncology Inp Progress Note ---
<Zeinab Sanz L - Last Filed: 04/22/18 17:32> Date of Encounter: 04/22/18 Time of Encounter: 15:00 (1) Lytic bone lesion of femur Current Visit: Yes Status: Acute Assessment and plan: CT chest/abdomen/pelvis with oral contrast only-reveals osseous metastatic disease to iliac bones, ischia and L vertebral body with associated compression fracture, limited evaluation for solid organ metastasis but no identifiable lesions are noted, nodular opacity within the left lower lobe, anasarca, moderate ascites and left pleural effsuion with associated airspace disease. Patients SPEP shows no monoclonal protein, UPEP shows no monoclonal free light chains (BJP) detected. Serum free light chains have not resulted. She is s/p pelvic lytic lesion bone biopsy today, patient tolerated procedure well. This appears to be a metastatic process, potentially metastatic breast cancer given patients history. Treatment options were again discussed today, we will not plan to pursue treatment with cytotoxic chemotherapy. If this holds to be metastatic breast cancer, will pursue treatment with anastrozole pending hormone status, or other well tolerated oral medication. From an oncology standpoint, patient does not need to stay inpatient as we await pathology report, we will plan to follow up as an outpatient next week to discuss pathology and treatment options. (2) Anemia Current Visit: Yes Status: Acute Assessment and plan: Acute, macrocytic anemia (MCV 104 on admission), s/p 1 unit PRBC Iron, folate, B12 are replete Stool guaiac-pending Stable at this time. Continue to monitor, transfuse as needed Qualifiers: Qualified Code(s): D64.9 - Anemia, unspecified (3) LAUREN (acute kidney injury) Current Visit: Yes Status: Acute Assessment and plan: Continues to improve with supportive measures (4) Insomnia Current Visit: Yes Status: Acute Assessment and plan: Multifactorial, likely secondary to recent diagnosis and hospital environment. Remeron ordered to assist with insomnia, appetite and mood. Ambien PRN has also been effective Qualifiers: Qualified Code(s): G47.00 - Insomnia, unspecified Oncology: Subj Interval history: Ms. Kim has just returned from IR. She states her bx went well and with little pain associated. She denies pain at this time. She states she slept much better last night with use of Ambien. - Constitutional Vitals: Vital Signs Temp Pulse Resp BP Pulse Ox 10/03/18 14:00 98 33 110/60 100 04/22/18 13:54 104 18 113/64 100 04/22/18 13:35 100 26 113/64 04/22/18 11:11 98.8 F 98 16 107/68 98 04/22/18 06:37 98.6 F 102 16 127/68 100 04/22/18 03:37 98.1 F 113 16 106/64 100 04/21/18 23:24 98.7 F 113 16 117/79 96 04/21/18 20:19 98.3 F 108 16 105/63 97 Intake and Output 04/22/18 04/22/18 04/22/18 07:59 15:59 23:59 Output Total 250 / 250 Balance -250 / -250 Output: Urine 250 / 250 General appearance: cooperative, no acute distress, no febrile - Head Head exam: Present: atraumatic - ENT ENT exam: Present: mucous membranes moist - Respiratory Respiratory exam: Present: CTAB. Absent: respiratory distress - Cardiovascular Cardiovascular exam: Present: RRR, +S1, +S2 - GI/Abdominal GI/Abdominal exam: Present: normal bowel sounds, soft. Absent: guarding, rebound, tenderness - Extremities Exam Extremities exam: Present: normal inspection. Absent: calf tenderness - Neurological Exam Neurological exam: Present: alert, oriented X3, strengths equal and symetr throughout - Psychiatric Psychiatric exam: Present: depressed, flat affect - Skin Skin exam: Present: dry, intact, normal color, warm Oncology: Obj Data - Labs CBC & Chem 7: 04/22/18 04:00 04/22/18 04:00 - Impressions Impressions Bone Biopsy CT 04/22/18 00:00 IMPRESSION: Successful CT guided core biopsy of left sacral lucent bone lesion.. D/ / Tito Gibbons / Tito Gibbons Interpreting Provider: Tito Gibbons - ABG Interpretation ABG results: PT/INR, D-dimer PT 12.7 Seconds (9.4-12.1) H 04/22/18 12:15 Consult Discharge Plan - Plan Referrals: Coral Grossman, [employer]GE [Primary Care Provider] - (Ana is going to [facility]) Inpatient Charges Provider: Dr. Ayden Albrecht <Arun Albrecht S - Last Filed: 04/22/18 21:43> Date of Encounter: 04/22/18 - Constitutional Vitals: Vital Signs Temp Pulse Resp BP Pulse Ox 04/22/18 21:06 98.3 F 103 14 116/75 100 04/22/18 14:00 98 33 110/60 100 04/22/18 13:54 104 18 113/64 100 04/22/18 13:35 100 26 113/64 04/22/18 11:11 98.8 F 98 16 107/68 98 04/22/18 06:37 98.6 F 102 16 127/68 100 04/22/18 03:37 98.1 F 113 16 106/64 100 04/21/18 23:24 98.7 F 113 16 117/79 96 Intake and Output 04/22/18 04/22/18 04/23/18 08:59 16:59 00:59 Output Total 250 / 250 Balance -250 / -250 Output: Urine 250 / 250 Oncology: Obj Data - Labs CBC & Chem 7: 04/22/18 04:00 04/22/18 18:00 Labs: Laboratory Results - last 24 hr 04/17/18 04/17/18 04/22/18 19:00 22:47 04:00 WBC 3.8 L RBC 2.33 L Hgb 7.6 L Hct 24.7 L MCV 106.0 H MCH 32.6 MCHC 30.8 L RDW 21.5 H Plt Count 93 L MPV 10.4 Immature Gran % 1.1 Seg Neutrophils % 64.6 Lymphocytes % 21.3 Monocytes % 11.7 Eosinophils % 1.3 Basophils % 0.0 Neutrophils # 2.5 Lymphocytes # 0.8 Monocytes # 0.4 Eosinophils # 0.1 Basophils # 0.0 Nucleated RBCs/100 WBC 0.5 H Immature Plt Fraction 4.6 PT INR Sodium Potassium Chloride Carbon Dioxide BUN Creatinine Est GFR ( Amer) Est GFR (Non-Af Amer) BUN/Creatinine Ratio Glucose Calculated Osmolality Calcium Prot Electrophor EER SEE NOTE Total Protein (PEP) 6.30 Albumin (PEP) 3.06 L Thhfm-2-Uwvbmrank 0.50 H Xueae-8-Ciwvpajhv 1.06 H Beta Globulins 0.74 Gamma Globulins 0.94 PEP Interpretation SEE NOTE Serum Immunofix Reflex NOT DONE Ur Collection Duration RANDOM Urine Total Volume RANDOM Urine Total Protein SEE NOTE Urine Albumin (PEP) DETECTED U Yelhj-9-Hptqnbds DETECTED U Gzvdi-4-Lyelzipl DETECTED U Beta Globulin DETECTED U Gamma Globulin DETECTED U Free [place] Light Ch 47.50 H U Free [place] Chain 24h SEE NOTE U Free Lambda Light Ch 6.62 H U Free Lambda Chn 24h SEE NOTE U Free [place]/Lambda 7.18 IgG TNP IgA TNP IgM TNP Urine LARS Interpret SEE NOTE 04/22/18 04/22/18 04/22/18 04:00 12:15 18:00 WBC RBC Hgb Hct MCV MCH MCHC RDW Plt Count MPV Immature Gran % Seg Neutrophils % Lymphocytes % Monocytes % Eosinophils % Basophils % Neutrophils # Lymphocytes # Monocytes # Eosinophils # Basophils # Nucleated RBCs/100 WBC Immature Plt Fraction PT 12.7 H INR 1.1 Sodium 140 141 Potassium 5.4 H 4.5 Chloride 115 H 115 H Carbon Dioxide 24 22 L BUN 28 H 24 H Creatinine 1.69 H 1.47 H Est GFR ( Amer) 35 L 42 L Est GFR (Non-Af Amer) 29 L 34 L BUN/Creatinine Ratio 17 16 Glucose 91 88 Calculated Osmolality 295 295 Calcium 8.7 8.1 L Prot Electrophor EER Total Protein (PEP) Albumin (PEP) Scwff-0-Zfzkknfuu Hqpnj-4-Ntyywsbtg Beta Globulins Gamma Globulins PEP Interpretation Serum Immunofix Reflex Ur Collection Duration Urine Total Volume Urine Total Protein Urine Albumin (PEP) U Bcmfk-5-Kegvtgre U Jhcmt-5-Cgycezqn U Beta Globulin U Gamma Globulin U Free [place] Light Ch U Free [place] Chain 24h U Free Lambda Light Ch U Free Lambda Chn 24h U Free [place]/Lambda IgG IgA IgM Urine LARS Interpret - Impressions Impressions Bone Biopsy CT 04/22/18 00:00 IMPRESSION: Successful CT guided core biopsy of left sacral lucent bone lesion.. D/ / Tito Gibbons / Tito Gibbons Interpreting Provider: Tito Gibbons - ABG Interpretation ABG results: PT/INR, D-dimer PT 12.7 Seconds (9.4-12.1) H 04/22/18 12:15 Inpatient Charges Provider: Dr. Ayden Albrecht Follow up - Inpatient: [id number] - Attending Attestation I examined this patient and my medical decision-making was reviewed with the Advanced Practice Nurse. I agree with the documented findings, disposition and treatment plan as described except to the extent set forth below. She is doing well and resting comfortably. No pain. No fever or chills. SPEP/UPEP negative for monoclonal paraproteinemia. Pelvic bone biopsy completed with results pending. D/W pathology. Discussed with patient and family results. Breast cancer is most likely scenario at this juncture. Working under this assumption, treatment with an AI was discussed. No need for urgent chemotherapy. Certainly the biopsy may show other pathology or no pathology at all. Given blood counts, MDS is also a consideration. I have recommended she be discharged to SNF for rehebilitation, and I will arrange for follow-up next week in my office. All questions answered. We will sign off. I spent 40 minutes in counseling today.
[2018-04-22 19:16] LABS: Calcium 8.1 mg/dL (8.6-10.3); Potassium 4.5 mEq/L (3.5-5.1)
[2018-04-22] MEDS: Mirtazapine 15 MG TABLET PO SCH (20:06)
[2018-04-23 03:56] LABS: Hemoglobin 6.8 g/dL (11.5-15.4); Immature Granulocytes % 0.6 % (0-4); Mean Corpuscular Volume 103.8 fL (83.0-100.0)
[2018-04-23 03:58] LABS: Eosinophils % 0.8 %; Hematocrit 21.8 % (35.3-44.9); Immature Platelets 5.9 % (1.1-6.1); Lymphocytes # 0.7 K/mcL (0.6-4.6); Lymphocytes % 18.9 %; Mean Corpuscular HGB Conc 31.2 g/dL (31.6-35.5); Mean Corpuscular Hemoglobin 32.4 pg (28.0-33.3); Mean Platelet Volume 11.1 fL (9.4-12.4); Monocytes # 0.4 K/mcL (0.0-1.3); Monocytes % 9.7 %; Neutrophils # 2.5 K/mcL (1.6-8.9)
[2018-04-23 04:04] LABS: Calcium 8.4 mg/dL (8.6-10.3); Potassium 5.1 mEq/L (3.5-5.1)
[2018-04-23 04:19] LABS: Platelet Count 83 K/mcL (140-400)
[2018-04-23 05:58] LABS: Anisocytosis 1+ (Not Present); Platelet Estimate Decreased (Normal)
[2018-04-23] MEDS: *HR* Heparin 5,000 UNIT/ML VIAL SQ SCH ×2 (06:17→16:56)
--- NOTE | 2018-04-23 08:06 | Internal Med Progress Note ---
<[place] - Last Filed: 04/23/18 09:05> Hospitalist Progress Note - Encounter Date of Encounter: 04/23/18 Time of Encounter: 08:45 - Subjective Interval History: Ms. Kim is a 77F with PMH of HTN, STEMI, and COPD, who originally presented to the ED on 04/17 after abnormal lab results were reported by her PCP. She had a fall at home several weeks before and a lumbar and pelvic xray were obtained. A lytic lesion was noted on the left femoral intertrochanteric region. Labs from the PCP revealed macrocytic anemia and hyponatremia. It was discovered that the pt had also been experiencing lethargy and weight loss. Head CT from the ED was normal. Retroperitoneal ultrasound was suggestive of underlying chronic renal disease. Elevated protein in the urine was also noted. UPEP showed elevated free [place] and Lambda light chains, but no Bence-dasilva protiens. SPEP was unremarkable. 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 A nodular opacity in the left lower lobe was also identified. She underwent a bone biopsy of a lytic lesion in her sacrum, awaiting pathology. Possibly metastatic breast, with pt's hx of bilateraly lobular carcinoma. Pt seen and examined at bedside today. She is resting comfortably in bed. No acute events overnight. Pt has no new or acute complaints. Denies any fever, chills, chest pain, shortness of breath, abdominal pain, nausea, vomiting, urinary pain or difficulties, headache, numbness, or tingling. - Exam Vitals: Temp Pulse Resp BP Pulse Ox 98.1 F 103 14 97/63 100 04/23/18 04:32 04/23/18 04:32 04/23/18 04:32 04/23/18 04:32 04/23/18 04:32 Exam: Constitutional: cachectic female. no acute distress. pleasant. Head: Normocephalic, atraumatic Eyes: PERRL, EOMI, conjunctiva pink, sclera anicteric Neck: Supple, trachea midline, no lymphadenopathy Lungs: Clear to auscultation bilaterally. Nonlabored breathing. No wheezes, rales, or rhonchi noted. Cardiac: RRR. No murmurs, clicks, or rubs noted. GI: Abdomen soft, nontender, mildly distended. Normoactive bowel sounds Extremities: Warm, radial pulses palpable and symmetrical. No cyanosis, pedal edema, or calf tenderness. Neuro: Alert and oriented 3. No focal deficits. Normal speech. Skin: Warm, dry, and intact. - Assessment and Plan (1) Anemia Current Visit: Yes Status: Acute Assessment and Plan: Likely chronic related to underlying CKD Hb had dropped to 6.4 on 04/18 Transfused 1 unit pRBCs on 04/18 H&H dropped again today at 6.8 and 21.8 respectively 1 unit pRBCs ordered No evidence of acute or chronic bleed at this time B12 and folate elevated as checked on 04/18 and 04/20 (2) Lytic bone lesion of femur Current Visit: Yes Status: Acute Assessment and Plan: Lytic lesion of the left femoral intertrochanteric xray was originally obtained after a fall several weeks ago pt admits to fatigue and weight loss Bone survey on 04/17 showed small lucent lesion in proximal left femur Pt has hx of lobular carcinoma of the right breast is 2001, and lobular carcinoma of the left breast in 2008. Pt also has hx of smoking. CT abdomen/pelvis revealed further osseous metastatic disease in the ilium, ischia, and L1. There is also a nodular opacity in the Left lower lobe of the lung. Nuclear med bone scan was concerning for multifocal activity in the lower extremities. SPEP unremarkable UPEP showed elevated free [place] and Lambda proteins, but no Bence-Dasilva proteins. Heme/onc following Concerning for metastatic breast ca Awaiting bone bx pathology (3) Malnourished Current Visit: Yes Status: Acute Assessment and Plan: Pt aappears ill and cachectic Appreciate nutrition consult Ensure with meals TID (4) Hypotension Current Visit: Yes Status: Resolved Assessment and Plan: 113/71 this am Continue to hold home metoprolol, losartan, and HCTZ (5) Renal failure Current Visit: Yes Status: Resolved Assessment and Plan: New onset renal failure with creatinine 5.6, improved at 1.55 today - renal ultrasound revealed echogenicity of renal cortex in upper limits of normal, along with relatively hypoechoic renal medullary pyramids, consistent with chronic renal disease - No urine eosinophils - Urine sodium normal at 88.6 - Total urine protein elevated, but albumin normal, likely increased globulins related to multiple myeloma Kidney functions improving well Nephrology on board (6) Tobacco use Current Visit: No Status: Chronic Assessment and Plan: hx of smoking Continue Nicotine patch (7) Hyperkalemia Current Visit: Yes Status: Acute Assessment and Plan: Potassium elevated at 5.4 on 04/22 Received 1L of half normal saline Repeat chem that evening revealed potassium of 4.5 Mildly elevated again today at 5.1 DVT Prophylaxis: SQ heparin - Summary of Assessment and Plan Summary of Assessment and Plan: Spoke with heme/onc. They will continue workup outpatient. Will speak with social service coordinator today about placement in ECF for discharge - Time Spent with Patient Total time spent is greater than 50% in coordination of care (as documented) at patient's floor/unit and/or counseling patient: Internal Medicine: Result - Labs CBC & Chem 7: 04/23/18 03:30 04/23/18 03:30 Labs: Short CBC 04/23/18 Range/Units 03:30 WBC 3.6 L (4.3-11.1) K/mcL Hgb 6.8 L (11.5-15.4) g/dL Hct 21.8 L (35.3-44.9) % Plt Count 83 L (140-400) K/mcL Neutrophils # 2.5 (1.6-8.9) K/mcL BMP 04/22/18 04/23/18 18:00 03:30 Sodium 141 138 Potassium 4.5 5.1 Chloride 115 H 113 H Carbon Dioxide 22 L 20 L BUN 24 H 25 H Creatinine 1.47 H 1.55 H Glucose 88 90 Calcium 8.1 L 8.4 L - ABG Interpretation ABG results: PT/INR, D-dimer PT 12.7 Seconds (9.4-12.1) H 04/22/18 12:15 - Impressions Impressions Bone Biopsy CT 04/22/18 00:00 IMPRESSION: Successful CT guided core biopsy of left sacral lucent bone lesion.. D/ / Tito Gibbons / Tito Gibbons Interpreting Provider: Tito Gibbons Consult Discharge Plan - Plan Referrals: Coral Grossman, CERTIFIED RECREATIONAL THERAPIST [Primary Care Provider] - (Ana is going to ECF) <Raj Oliver - Last Filed: 04/23/18 13:33> Hospitalist Progress Note - Encounter Date of Encounter: 04/23/18 - Exam Vitals: Temp Pulse Resp BP Pulse Ox 98.0 F 80 18 113/62 95 04/23/18 12:07 04/23/18 12:07 04/23/18 12:07 04/23/18 12:07 04/23/18 12:07 - Assessment and Plan (1) Tobacco use Current Visit: No Status: Chronic (2) Renal failure Current Visit: Yes Status: Resolved (3) Lytic bone lesion of femur Current Visit: Yes Status: Acute (4) Malnourished Current Visit: Yes Status: Acute (5) Hypotension Current Visit: Yes Status: Resolved (6) Anemia Current Visit: Yes Status: Acute (7) Hyperkalemia Current Visit: Yes Status: Acute - Time Spent with Patient Total time spent is greater than 50% in coordination of care (as documented) at patient's floor/unit and/or counseling patient: Internal Medicine: Result - Labs CBC & Chem 7: 04/23/18 03:30 04/23/18 03:30 Labs: Short CBC 04/23/18 Range/Units 03:30 WBC 3.6 L (4.3-11.1) K/mcL Hgb 6.8 L (11.5-15.4) g/dL Hct 21.8 L (35.3-44.9) % Plt Count 83 L (140-400) K/mcL Neutrophils # 2.5 (1.6-8.9) K/mcL BMP 04/22/18 04/23/18 18:00 03:30 Sodium 141 138 Potassium 4.5 5.1 Chloride 115 H 113 H Carbon Dioxide 22 L 20 L BUN 24 H 25 H Creatinine 1.47 H 1.55 H Glucose 88 90 Calcium 8.1 L 8.4 L - ABG Interpretation ABG results: PT/INR, D-dimer PT 12.7 Seconds (9.4-12.1) H 04/22/18 12:15 - Impressions Impressions Bone Biopsy CT 04/22/18 00:00 IMPRESSION: Successful CT guided core biopsy of left sacral lucent bone lesion.. D/ / Tito Gibbons / Tito Gibbons Interpreting Provider: Tito Gibbons - Attending Attestation I examined this patient and my medical decision-making was reviewed with the Resident Physician Dr. Barry. I agree with the documented findings, disposition and treatment plan as described except to the extent set forth below. Ms. Kim is a 77F with PMH of HTN, STEMI, and COPD, who originally presented to the ED on 04/17 after abnormal lab results were reported by her PCP. She had a fall at home several weeks before and a lumbar and pelvic xray were obtained which showed lytic lesion on the left femoral intertrochanteric region. She happened to have LAUREN too which improved with IV hdyration. Her song CT of Abd/Pelvis/Chest showed multiple lytic lesion over Ileus, Ischia and L1. Heme Onc consulted, appreciate their recommendations. Had bone marrow biopsy today. UPEP came back as negative for multiple myeloma.. Will f/u on bone biopsy results . PT / OT recommend ECF transfer for short term rehab. SW working on it. Her LAUREN is improving slowly. Cont gentle IV hydration Pt stated she is feeling better, denied any pain any where. Gen: A, A, O x 3 Chest: Diminished BS b/l, No crackles, no rales <[place] - Last Filed: 04/23/18 09:05> (1) Anemia Qualifiers: Anemia type: unspecified type Qualified Code(s): D64.9 - Anemia, unspecified (3) Malnourished Qualifiers: Malnutrition type: unspecified type Qualified Code(s): E46 - Unspecified protein-calorie malnutrition (4) Hypotension Qualifiers: Hypotension type: unspecified hypotension type Qualified Code(s): I95.9 - Hypotension, unspecified (5) Renal failure Qualifiers: Renal failure chronicity: unspecified chronicity Qualified Code(s): N19 - Unspecified kidney failure <[email or web address] - Last Filed: 04/23/18 13:33> (2) Renal failure Qualifiers: Renal failure chronicity: unspecified chronicity Qualified Code(s): N19 - Unspecified kidney failure (4) Malnourished Qualifiers: Malnutrition type: unspecified type Qualified Code(s): E46 - Unspecified protein-calorie malnutrition (5) Hypotension Qualifiers: Hypotension type: unspecified hypotension type Qualified Code(s): I95.9 - Hypotension, unspecified (6) Anemia Qualifiers: Anemia type: unspecified type Qualified Code(s): D64.9 - Anemia, unspecified
[2018-04-23] MEDS: Nicotine 21 MG PATCH.TD24 TD SCH (08:08)
[2018-04-23] MEDS: Aspirin Enteric Coated 81 MG Tablet PO SCH (08:09)
[2018-04-23] MEDS ORDERED: 0.9 % Sodium Chloride 250 ML ONE (09:10)
--- NOTE | 2018-04-23 11:04 | Nephrology Progress Note ---
Date of Encounter: 04/23/18 Time of Encounter: 12:00 - Assessment and Plan (1) LAUREN (acute kidney injury) Current Visit: Yes Status: Acute SCr improving still at 1.55, GFR 32, continue ivf UOP noted at 250cc in the past 24hrs documented Continue to avoid nephrotoxins if possible (2) Lytic bone lesion of femur Current Visit: Yes Status: Acute (3) Anemia Current Visit: Yes Status: Acute Qualifiers: Anemia type: unspecified type Qualified Code(s): D64.9 - Anemia, unspecified (4) Hyponatremia Current Visit: Yes Status: Acute (5) Hyperkalemia Current Visit: Yes Status: Acute Subjective Interval history: Pt seen and examined with family at bedside with no complaints. s/p biopsy of lytic femur lesion with results pending Objective - Vital Signs Vital signs: Vital Signs Temp Pulse Resp BP Pulse Ox 04/23/18 09:58 98.0 F 16 113/66 04/23/18 09:44 97.7 F 89 16 108/67 100 04/23/18 08:06 98.0 F 87 17 113/71 97 04/23/18 04:32 98.1 F 103 14 97/63 100 04/23/18 02:36 98.2 F 95 14 117/72 100 04/22/18 21:06 98.3 F 103 14 116/75 100 04/22/18 20:06 100 04/22/18 14:00 98 33 110/60 100 04/22/18 13:54 104 18 113/64 100 04/22/18 13:35 100 26 113/64 04/22/18 11:11 98.8 F 98 16 107/68 98 Intake and Output 04/22/18 04/23/18 04/23/18 23:59 07:59 15:59 Intake Total 1000 / 1000 350 / 350 Output Total 400 / 400 Balance 600 / 600 350 / 350 Intake: IV Fluids 1000 / 1000 0.45% Sodium Chloride 1000 Ml 1000 / 1000 1000 Ml 1,000 ML @ 75 mls/hr IVC .[id number] Rx#:[id number] Blood Product 350 / 350 Rbcs Leuko Poor As-3 Ph Unit 350 / 350 [id number] Output: Urine 400 / 400 Other: Weight 49.5 kg Patient Weight 04/23/18 23:59 Weight 49.5 kg - Lab 04/23/18 03:30 04/23/18 03:30 Most recent lab results Calcium 8.4 mg/dL (8.6-10.3) L 04/23/18 03:30 Phosphorus 5.6 mg/dL (2.7-4.5) H 04/17/18 12:20 Magnesium 3.2 mg/dL (1.6-2.6) H 04/17/18 12:20 Urine Creatinine 97 mg/dL 04/18/18 13:57 Urine Sodium 88.6 mEq/L 04/18/18 13:57 Urine Total Protein 97 mg/dL (1-14) H 04/18/18 04:31 Consult Discharge Plan - Plan Referrals: Coral Grossman, ELECTRONIC WARFARE LINGUIST [Primary Care Provider] - (Ana is going to [facility])
[2018-04-23] MEDS: Mirtazapine 15 MG TABLET PO SCH (20:24)
[2018-04-24 04:31] LABS: Basophils % 0.2 %; Hematocrit 27.9 % (35.3-44.9); Hemoglobin 8.7 g/dL (11.5-15.4); Mean Corpuscular HGB Conc 31.2 g/dL (31.6-35.5)
[2018-04-24 04:33] LABS: Eosinophils # 0.1 K/mcL (0.0-0.6); Eosinophils % 1.8 %; Immature Granulocytes % 0.9 % (0-4); Immature Platelets 6.3 % (1.1-6.1); Lymphocytes # 0.9 K/mcL (0.6-4.6); Lymphocytes % 19.8 %; Mean Corpuscular Hemoglobin 31.8 pg (28.0-33.3); Mean Corpuscular Volume 101.8 fL (83.0-100.0); Mean Platelet Volume 11.4 fL (9.4-12.4); Monocytes # 0.4 K/mcL (0.0-1.3); Monocytes % 8.5 %; Neutrophils # 3.1 K/mcL (1.6-8.9); Red Blood Count 2.74 M/mcL (3.82-4.97); Segmented Neutrophils % 68.8 %
[2018-04-24 04:57] LABS: Calcium 8.4 mg/dL (8.6-10.3)
[2018-04-24 04:58] LABS: Platelet Count 76 K/mcL (140-400)
[2018-04-24] MEDS: *HR* Heparin 5,000 UNIT/ML VIAL SQ SCH (05:18)
[2018-04-24 05:20] LABS: Anisocytosis 1+ (Not Present); Microcytosis Present (Not Present); Platelet Estimate Decreased (Normal); Tear Drop Cells 1+ (Not Present)
[2018-04-24 05:21] LABS: Large Platelets Present (Not Present)
[2018-04-24] MEDS: Nicotine 21 MG PATCH.TD24 TD SCH (08:58)
[2018-04-24] MEDS: Aspirin Enteric Coated 81 MG Tablet PO SCH (08:58)
--- NOTE | 2018-04-24 09:14 | Discharge Summary ---
<[place] Tish - Last Filed: 04/24/18 17:07> - NOTES TO OUTPATIENT PROVIDER Notes to Outpatient Provider: Ms. Kim presented to the ED on 04/17 after abnormal lab results were reported by her PCP. She had a fall at home several weeks before and a lumbar and pelvic xray were obtained. A lytic lesion was noted on the left femoral intertrochanteric region. Labs from the PCP revealed macrocytic anemia and hyponatremia. It was discovered that the pt had also been experiencing lethargy and weight loss prior to admission. Head CT from the ED was normal. Retroperitoneal ultrasound was suggestive of underlying chronic renal disease. Elevated protein in the urine was also noted. UPEP showed elevated free [place] and Lambda light chains, but no Bence-dasilva protiens. SPEP was unremarkable. 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 A nodular opacity in the left lower lobe was also identified. Nuclear medicine bone scan was concerning for multifocal activity in the lower extremities. She underwent a bone biopsy of a lytic lesion in her sacrum, awaiting pathology. Possibly metastatic breast, with pt's hx of bilateraly lobular carcinoma. Recommend continue to follow with heme/onc after discharge. Orders not resulted at time of discharge: Pending orders 04/21/18 01:05 Serum Free Light Chain [[place] Lambda Qnt FLC w Ratio] AM 0400 04/21/18 18:04 Surgical Pathology [PTH] Routine (Sacral bone bx) Date of Encounter: 04/24/18 Time of Encounter: 09:10 - Discharge Diagnosis (1) Lytic bone lesion of femur Priority: Primary Status: Acute Assessment and Plan: Lytic lesion of the left femoral intertrochanteric xray was originally obtained after a fall several weeks ago pt admits to fatigue and weight loss Bone survey on 04/17 showed small lucent lesion in proximal left femur Pt has hx of lobular carcinoma of the right breast is 2001, and lobular carcinoma of the left breast in 2008. Pt also has hx of smoking. CT abdomen/pelvis revealed further osseous metastatic disease in the ilium, ischia, and L1. There is also a nodular opacity in the Left lower lobe of the lung. Nuclear med bone scan was concerning for multifocal activity in the lower extremities. SPEP unremarkable UPEP showed elevated free [place] and Lambda proteins, but no Bence-Dasilva proteins. F/u with heme/onc as outpatient Concerning for metastatic breast ca Awaiting bone bx pathology (2) Anemia Priority: Secondary Status: Acute Assessment and Plan: Likely chronic related to underlying CKD Hb had dropped to 6.4 on 04/18 Transfused 1 unit pRBCs on 04/18 Hb dropped again to 6.8 on 04/23 Transfused 1 unit pRBCs on 04/23 H&H stable today at 8.7 and 27.9 respectively No evidence of acute or chronic bleed at this time Possibly related to metastatic disease B12 and folate elevated as checked on 04/18 and 04/20 Qualifiers: Anemia type: unspecified type Qualified Code(s): D64.9 - Anemia, unspecified (3) Malnourished Priority: Secondary Status: Acute Assessment and Plan: Pt aappears ill and cachectic Appreciate nutrition consult Ensure with meals TID Qualifiers: Malnutrition type: unspecified type Qualified Code(s): E46 - Unspecified protein-calorie malnutrition (4) Hypotension Priority: Secondary Status: Resolved Assessment and Plan: 100/63 this am Continue to hold home metoprolol, losartan, and HCTZ Qualifiers: Hypotension type: unspecified hypotension type Qualified Code(s): I95.9 - Hypotension, unspecified (5) Renal failure Priority: Secondary Status: Resolved Assessment and Plan: New onset renal failure with creatinine 5.6, improved at 1.40 today - renal ultrasound revealed echogenicity of renal cortex in upper limits of normal, along with relatively hypoechoic renal medullary pyramids, consistent with chronic renal disease - No urine eosinophils - Urine sodium normal at 88.6 - Total urine protein elevated, but albumin normal, likely increased globulins related to multiple myeloma F/u in 2 weeks with labs Qualifiers: Renal failure chronicity: unspecified chronicity Qualified Code(s): N19 - Unspecified kidney failure (6) Tobacco use Priority: Secondary Status: Chronic Assessment and Plan: hx of smoking Continue Nicotine patch Spent >10 minutes discussing the importance of smoking cessation on discharge (7) Hyperkalemia Priority: Secondary Status: Resolved Assessment and Plan: Potassium elevated at 5.4 on 04/22 Received 1L of half normal saline Repeat chem that evening revealed potassium of 4.5 Resolved with potassium at 4.0 today Hospital course: See notes to outpatient provider Discharge discussed with: patient, family, nurse, case management, help desk consultant - Time Spent with Patient Total time spent providing and/or coordinating discharge services: - Discharge Medications Prescriptions: Mirtazapine [Remeron] 7.5 mg PO HS #30 tablet Tramadol HCl [Ultram] 50 mg PO TID PRN 5 Days #15 tab PRN Reason: Pain Zolpidem [Ambien] 5 mg PO HS PRN 15 Days #15 tablet PRN Reason: Insomnia Home Medications: Ibandronate Sodium [Boniva] 150 mg PO QMONTH 08/20/15 [History] Clopidogrel [Plavix] 75 mg PO DAILY #30 tablet 08/22/15 [Rx] Nitroglycerin 0.4 mg SL Q5MIN PRN #25 tab.subl 08/22/15 [Rx] predniSONE [PredniSONE] 20 mg PO DAILY 12 Days #24 tablet 04/07/18 [Rx] Lidocaine Patch [Lidoderm 5% patch] 1 each TP DAILY PRN #7 adh..patch 04/08/18 [ Rx] Aspirin Enteric Coated [Aspirin EC] 81 mg PO DAILY 04/17/18 [History] Rosuvastatin Calcium 40 mg PO DAILY 04/17/18 [History] Mirtazapine [Remeron] 7.5 mg PO HS #30 tablet 04/24/18 [Rx] Tramadol HCl [Ultram] 50 mg PO TID PRN 5 Days #15 tab 04/24/18 [Rx] Zolpidem [Ambien] 5 mg PO HS PRN 15 Days #15 tablet 04/24/18 [Rx] Allergies/Adverse Reactions: 3 Allergy/AdvReac Type Severity Reaction Status Date / Time Erythromycin Base Allergy Rash Verified 04/08/18 12:26 Penicillins Allergy Hives Verified 04/08/18 12:26 Date of admission: 04/17/18 14:15 Primary care physician: Coral Grossman CNP Consults: 04/17/18 14:28 Consult to Invasive Line Access Team [CONS] Routine Reason for Consult: limited vascular access with LAUREN and need for blood products Line Type: EPIV 04/17/18 16:20 Consult to Nephrology [CONS] Routine Consulting Provider: Kidney Fenwick/KEILA/KAYDEN/PALMA Reason for Consult: Left femur lytic lesion Call Completed: Yes 04/17/18 16:42 consult to scrap cutter [Consult to Nutrition] [CONS] Routine Comment: Consulting Provider: NUTRITION Reason for Dietary Consult: Diet Education 04/17/18 16:46 Consult to Nutrition [CONS] Routine Comment: Consulting Provider: NUTRITION Reason for Dietary Consult: MST Score 04/20/18 10:55 Consult to Oncology Hematology [CONS] Routine Consulting Provider: Arun Albrecht Reason for Consult: Left femur lytic lesion, hx of breast cancer Call Completed: Yes 04/20/18 15:00 Consult to Occupational Therapy [CONS] Routine Comment: Evaluate, develop and implement POC Reason for Consult: eval for poss ecf, will need pre-cert Does patient have active BEDREST order?: No Is patient medically & hemodynamically stable?: Yes Consult to Physical Therapy [CONS] Routine Comment: Evaluate, develop and implement POC Reason for Consult: eval for poss ecf, will need pre-cert Does patient have active BEDREST order?: No Is patient medically & hemodynamically stable?: Yes 04/21/18 18:04 Consult to Interventional Radiology [CONS] Routine Consulting Provider: Radiology Interventional Cols Reason for Consult: pelvic bone lytic lesion biopsy- will call in AM Call Completed: No Discharging clinician: [place] - Constitutional Vitals: Temp Pulse Resp BP Pulse Ox 98.7 F 94 17 100/63 100 04/24/18 07:55 04/24/18 07:55 04/24/18 07:55 04/24/18 07:55 04/24/18 07:55 General appearance: Present: cachectic, A&O X 3 Exam: Constitutional: cachectic female. no acute distress. pleasant. Head: Normocephalic, atraumatic Eyes: PERRL, EOMI, conjunctiva pink, sclera anicteric Neck: Supple, trachea midline, no lymphadenopathy Lungs: Clear to auscultation bilaterally. Nonlabored breathing. No wheezes, rales, or rhonchi noted. Cardiac: RRR. No murmurs, clicks, or rubs noted. GI: Abdomen soft, nontender, mildly distended. Normoactive bowel sounds Extremities: Warm, radial pulses palpable and symmetrical. No cyanosis, pedal edema, or calf tenderness. Neuro: Alert and oriented 3. No focal deficits. Normal speech. Skin: Warm, dry, and intact. - Patient Status Disposition: Home Health Service Condition: Fair Functional capacity at discharge: uses cane/walker Overall status at discharge: patient is back to baseline - Discharge Instructions Instructions: How to Stop Smoking (GEN), Peripheral Vascular Disorders (DC), Self-Care Measures with Cancer (GEN), Anemia (GEN) Follow Up With: Arun Albrecht MD [Partnered Physician] - (Web-requested) Coral Grossman CNP [Primary Care Provider] - (Web-requested) Forms: ED Satisfaction Letter - Diet and Activity Activity: ambulate only with your walker, as per physical therapy, increase activity as tolerated, resume usual activities as tolerated Diet: low fat, low cholesterol, low salt diet <ThalMarlin simpsonbu - Last Filed: 04/24/18 17:19> Orders not resulted at time of discharge: Pending orders 04/21/18 01:05 Serum Free Light Chain [[place] Lambda Qnt FLC w Ratio] AM 0400 04/21/18 18:04 Surgical Pathology [PTH] Routine Date of Encounter: 04/24/18 - Discharge Diagnosis (1) Tobacco use Status: Chronic (2) Renal failure Status: Resolved Qualifiers: Renal failure chronicity: unspecified chronicity Qualified Code(s): N19 - Unspecified kidney failure (3) Lytic bone lesion of femur Status: Acute (4) Malnourished Status: Acute Qualifiers: Malnutrition type: unspecified type Qualified Code(s): E46 - Unspecified protein-calorie malnutrition (5) Hypotension Status: Resolved Qualifiers: Hypotension type: unspecified hypotension type Qualified Code(s): I95.9 - Hypotension, unspecified (6) Anemia Status: Acute Qualifiers: Anemia type: unspecified type Qualified Code(s): D64.9 - Anemia, unspecified (7) Hyperkalemia Status: Resolved Hospital course: Ms. Kim is a 77 year old female - Time Spent with Patient Total time spent providing and/or coordinating discharge services: Date of admission: 04/17/18 14:15 Primary care physician: Coral Grossman CNP Consults: 04/17/18 14:28 Consult to Invasive Line Access Team [CONS] Routine Reason for Consult: limited vascular access with LAUREN and need for blood products Line Type: EPIV 04/17/18 16:20 Consult to Nephrology [CONS] Routine Consulting Provider: Kidney Fenwick/KEILA/KAYDEN/PALMA Reason for Consult: Left femur lytic lesion Call Completed: Yes 04/17/18 16:42 consult to scrap cutter [Consult to Nutrition] [CONS] Routine Comment: Consulting Provider: NUTRITION Reason for Dietary Consult: Diet Education 04/17/18 16:46 Consult to Nutrition [CONS] Routine Comment: Consulting Provider: NUTRITION Reason for Dietary Consult: MST Score 04/20/18 10:55 Consult to Oncology Hematology [CONS] Routine Consulting Provider: Arun Albrecht Reason for Consult: Left femur lytic lesion, hx of breast cancer Call Completed: Yes 04/20/18 15:00 Consult to Occupational Therapy [CONS] Routine Comment: Evaluate, develop and implement POC Reason for Consult: eval for poss ecf, will need pre-cert Does patient have active BEDREST order?: No Is patient medically & hemodynamically stable?: Yes Consult to Physical Therapy [CONS] Routine Comment: Evaluate, develop and implement POC Reason for Consult: eval for poss ecf, will need pre-cert Does patient have active BEDREST order?: No Is patient medically & hemodynamically stable?: Yes 04/21/18 18:04 Consult to Interventional Radiology [CONS] Routine Consulting Provider: Radiology Interventional Cols Reason for Consult: pelvic bone lytic lesion biopsy- will call in AM Call Completed: No - Constitutional Vitals: Temp Pulse Resp BP Pulse Ox 98.9 F 94 19 106/64 95 04/24/18 15:30 04/24/18 15:30 04/24/18 15:30 04/24/18 15:30 04/24/18 15:30 - Attending Attestation I examined this patient and my medical decision-making was reviewed with the Resident Physician Dr. Barry. I agree with the documented findings, disposition and treatment plan as described except to the extent set forth below. Ms. Kim is a 77F with PMH of HTN, STEMI, and COPD, who originally presented to the ED on 04/17 after abnormal lab results were reported by her PCP. She had a fall at home several weeks before and a lumbar and pelvic xray were obtained which showed lytic lesion on the left femoral intertrochanteric region. She happened to have LAUREN too which improved with IV hdyration. Her song CT of Abd/Pelvis/Chest showed multiple lytic lesion over Ileus, Ischia and L1. Heme Onc consulted, appreciate their recommendations. Had bone marrow biopsy today. UPEP came back as negative for multiple myeloma.. Recommend to f/u with Heme Onc as an out pt regarding her bone biopsy results . PT / OT recommend ECF transfer for short term rehab. However insurance denied for ECF transfer since as per PT notes she can do basic ADL;s by herself. So will d/c her home with home health services. Talked to pt's son and updated on it. Pt stated she is feeling better, denied any pain any where. Gen: A, A, O x 3 Chest: Diminished BS b/l, No crackles, no rales
[2018-04-24 15:31] VITALS: BP 106/64
--- NOTE | 2018-04-24 16:13 | Physician Discharge Referral ---
Home Health/Hosp Referral Info Transfer to: Home Health Attending Provider: Dr. Oliver Provider in Charge Post Discharge: PCP - Diagnosis (1) Lytic bone lesion of femur Priority: Primary Status: Acute (2) Anemia Priority: Secondary Status: Acute (3) Hyperkalemia Priority: Secondary Status: Resolved (4) Malnourished Priority: Secondary Status: Acute (5) Hypotension Priority: Secondary Status: Resolved (6) Renal failure Priority: Secondary Status: Resolved (7) Tobacco use Priority: Secondary Status: Chronic - Respiratory Orders Smoking Cessation: Smoking cessation has been advised. For more information, call the [place] Tobacco Quit Line at 2-154-BVLE-NOW. - Diet/Nutrition Diet/Nutrition Orders: No Added Salt (JAYY), Renal - Activity Activity Orders: Up ad tara, Ambulate - Services Needed Following services are medically necessary services: Nursing, Physical Therapy, Occupational Therapy - Transfer Medications Home Medications: Ibandronate Sodium [Boniva] 150 mg PO QMONTH 08/20/15 [History] Temazepam [Restoril] 15 mg PO HS 08/20/15 [History] Clopidogrel [Plavix] 75 mg PO DAILY #30 tablet 08/22/15 [Rx] Nitroglycerin 0.4 mg SL Q5MIN PRN #25 tab.subl 08/22/15 [Rx] predniSONE [PredniSONE] 20 mg PO DAILY 12 Days #24 tablet 04/07/18 [Rx] Lidocaine Patch [Lidoderm 5% patch] 1 each TP DAILY PRN #7 adh..patch 04/08/18 [ Rx] Aspirin Enteric Coated [Aspirin EC] 81 mg PO DAILY 04/17/18 [History] LORazepam [Ativan] 1 - 2 mg PO DAILY PRN 04/17/18 [History] Rosuvastatin Calcium 40 mg PO DAILY 04/17/18 [History] Allergies/Adverse Reactions: 3 Allergy/AdvReac Type Severity Reaction Status Date / Time Erythromycin Base Allergy Rash Verified 04/08/18 12:26 Penicillins Allergy Hives Verified 04/08/18 12:26 Certification: Further, I certify that my clinical findings support that this patient is homebound (i.e. absences from home require considerable and taxing effort and are for medical reasons or anglican services or infrequently or short duration when for other reasons) because: Homebound Reason: Patient requires assistance of a person or device to safely leave home, Leaving home requires considerable and taxing effort due to condition Attestation: My signature below is to certify that this patient is under my care and that I, or nurse practitioner, or a physician's assistant quality manager working with me, has a face-to -face encounter with this patient.
[2018-04-27 06:58] LABS: Kappa Qnt Free Light Chains 1.74 mg/dL (0.33-1.94); Lambda Qnt Free Light Chains 1.49 mg/dL (0.57-2.63)
== END 2018-04-24 17:11 | disposition home health service (06) | DRG 478 ==
LOC: EMEROOARM 09:41 → SUATTDRO 14:15 → 2ANU 14:15
PROVIDERS: ADMIT Internal Medicine; ATTEND Family Medicine